=== PATIENT | female | born 2000 ===

== ENCOUNTER 2020-08-31 16:11 | Inpatient (IN) | payer OTHER ==
[2020-08-31] MEDS ORDERED: LIDOCAINE (2%) 20 MG/1 ML VIAL 20 ML MDV INFILTRATI ONE (17:46)
[2020-08-31] MEDS ORDERED: ePHEDrine SULFATE 50 MG/1 ML INJ IV PRN ×2 (17:46→21:56)
[2020-08-31] MEDS ORDERED: fentaNYL 100 MCG/2 ML INJ IV PRN (17:46)
[2020-08-31] MEDS ORDERED: ONDANSETRON 4 MG/2 ML INJ IV PRN (17:46)
[2020-08-31] MEDS ORDERED: MINERAL OIL 30 ML ORAL LIQD PO PRN (17:46)
[2020-08-31] MEDS ORDERED: TERBUTALINE 1 MG/1 ML INJ SUB-Q PRN (17:46)
[2020-08-31] MEDS ORDERED: ACETAMINOPHEN 325 MG TAB PO ONE (17:53)
--- NOTE | 2020-08-31 17:58 | History and Physical Report ---
History of Present Illness Date of examination: 08/31/20 Date of admission: 08/31/2020 Chief complaint: Vaginal spotting and contractions since this morning. History of present illness: 19 year old presents to L&D with complaint of vaginal spotting and contractions since this morning. Patient reports vaginal spotting was seen only with wiping and did not require use of a pad. Patient denies leaking of fluid. Patient reports active movement. Patient denies falls. Patient received care at [facility] and she brings records with her. LMP 12/02/2019. EDC 09/07/2020. significant for the following: low lying placenta (no ultrasound on chart to indicate whether this had resolved), BPD <10th percentile. labs are as follows: A+, antibody screen negative, rubella immune, hepatitis B surface antigen negative, HIV negative, RPR nonreactive, gonorrhea negative, chlamydia negative, AFP negative, 1 hour sugar test 85, GBS negative. Past History Past Medical History: other (overweight) Past Surgical History: no surgical history [employer]ATOR History: denies: chlamydia, gonorrhea, hepatitis B, hepatitis C, herpes, HIV, syphilis, trichomonas Family/Genetic History: diabetes, hypertension Social history: lives with family, full code. denies: smoking, alcohol abuse, prescription drug abuse, IV drug use - Obstetrical History Expected Date of Delivery: 09/07/20 Actual Gestation: 39 Week(s) 0 Day(s) : 1 Para: 0 Hx # Term Pregnancies: 0 Number of Pregnancies: 0 Spontaneous Abortions: 0 Induced : 0 Number of Living Children: 0 Medications and Allergies Allergies Allergy/AdvReac Type Severity Reaction Status Date / Time No Known Allergies Allergy Unverified 08/31/20 18:16 Active Meds: Active Medications Acetaminophen (Acetaminophen 325 Mg Tab) 650 mg PO ONCE ONE Stop: 08/31/20 17:54 Ephedrine Sulfate (Ephedrine Sulfate 50 Mg/1 Ml Inj) 10 mg IV Q2M PRN PRN Reason: Hypotension Fentanyl (Fentanyl 100 Mcg/2 Ml Inj) 100 mcg IV Q2H PRN PRN Reason: Pain,Severe (7-10) LABOR PAIN Lactated Ringer's (Lactated Ringers) 1,000 mls @ 125 mls/hr IV DIRECT EMMANUEL Oxytocin/Sodium Chloride (Pitocin/Ns 30 Unit/500ml) 30 units in 500 mls @ 40 mls/hr IV TITR EMMANUEL; Protocol Ampicillin Sodium (Ampicillin/Ns 2 Gm/100 Ml) 2 gm in 100 mls @ 100 mls/hr IV ONCE ONE; Protocol Stop: 08/31/20 18:45 Ampicillin Sodium (Ampicillin/Ns 1 Gm/50 Ml) 1 gm in 50 mls @ 100 mls/hr IV Q4H EMMANUEL; Protocol Lidocaine (Lidocaine (2%) 20 Mg/1 Ml Vial 20 Ml Mdv) 20 ml INFILTRATI ONCE ONE Stop: 08/31/20 17:47 Mineral Oil (Mineral Oil 30 Ml Oral Liqd) 30 ml PO QHS PRN PRN Reason: Constipation Ondansetron HCl (Ondansetron 4 Mg/2 Ml Inj) 4 mg IV Q8H PRN PRN Reason: Nausea And Vomiting Terbutaline Sulfate (Terbutaline 1 Mg/1 Ml Inj) 0.25 mg SUB-Q ONCE PRN PRN Reason: Hyperstimulation/Hypertonicity - Vital Signs Vital signs: Vital Signs Pulse BP 88 149/94 08/31/20 17:00 08/31/20 17:00 Temp Pulse Resp BP Pulse Ox 100.4 F H 90 18 136/105 99 08/31/20 17:03 08/31/20 17:48 08/31/20 17:03 08/31/20 17:45 08/31/20 17:48 - Physical Exam Abdomen: Positive: normal appearance, soft. Negative: distention, tenderness, guarding, rigidity Genitourinary (Female): Positive: normal external genitalia, normal perenium. Negative: perineal/vulvar lesions Vagina: Positive: other (small amount of pink vaginal spotting noted on exam glove) Uterus: Positive: enlarged. Negative: tender Anus/Rectum: Positive: normal perianal skin Extremities: Positive: normal. Negative: tenderness - Obstetrical FHR: category 1 Uterine Contraction Monitor Mode: External Cervical Dilatation: 3 Cervical Effacement Percentage: 70 station: -3 Uterine Contraction Pattern: Irregular Uterine Contraction Intensity: Mild Results All other labs normal. Assessment and Plan A: at 39 weeks gestation. Early labor. History of low lying placenta. GBS negative. Maternal fever upon presentation, temp. now normal. Elevated blood pressure; preeclampsia with severe features. P: Admit. EFM. Preeclamptic labs, urine culture, drug screen. Ultrasound for placenta location and integrity, EFW, RASHAUN, presentation. SCDs, Sommer catheter. Magnesium Sulfate IV for prevention of seizures. IV hydralazine for control of BPs. If no previa per US, plan augmentation of labor due to severe preeclampsia Consulted with Dr. Fajardo re: this patient and all of the above and he states he is in agreement with POC. Discussed POC with pt. via language line (patient speaks Dominican only).
[2020-08-31] MEDS ORDERED: MAGNESIUM SULFATE 4 GM/100 ML BAG IV ONE (17:59)
[2020-08-31] MEDS ORDERED: hydrALAZINE 20 MG/1 ML INJ IV PRN (18:00)
[2020-08-31] MEDS ORDERED: OXYTOCIN DRIP 30 UNITS/500 ML BAG IV SCH ×2 (18:00→23:45)
[2020-08-31] MEDS ORDERED: AMPICILLIN/NS 2 GM/100 ML 2 GM/100 ML BAG IV ONE (18:46)
[2020-08-31] MEDS: LACTATED RINGERS 1,000 ML IV SCH (18:47)
[2020-08-31] MEDS: MAGNESIUM SULFATE 40GM/1000ML 40 GM/1,000 ML BAG IV SCH (19:23)
[2020-08-31 19:33] LABS: Basophils # (Auto) 0.1 K/mm3 (0.0-0.1); Basophils % (Auto) 0.7 % (0.0-1.8); Eosinophils # (Auto) 0.1 K/mm3 (0.0-0.4); Eosinophils % (Auto) 0.6 % (0.0-4.3); Hemoglobin 13.4 gm/dl (10.1-14.3); Lymphocytes # (Auto) 2.4 K/mm3 (1.2-5.4); Lymphocytes % (Auto) 24.9 % (13.4-35.0); Mean Corpuscular HGB Conc 35 % (30-34); Mean Corpuscular Volume 98 fl (79-97); Monocytes # (Auto) 0.7 K/mm3 (0.0-0.8); Monocytes % (Auto) 7.4 % (0.0-7.3); Platelet Count 172 K/mm3 (140-440); Red Blood Count 3.87 M/mm3 (3.65-5.03); Red Cell Distribution Width 14.2 % (13.2-15.2)
[2020-08-31 19:47] LABS: Alanine Aminotransferase 14 units/L (7-56); Albumin 3.4 g/dL (3.9-5); Blood Urea Nitrogen 11 mg/dL (7-17); Hemolysis Index 66
[2020-08-31 19:49] LABS: BUN/Creatinine Ratio 22
[2020-08-31 19:55] LABS: Bilirubin,Urine NEG (Negative); Blood,Urine NEG (Negative); Color,Urine Yellow (Yellow); Mucus,Urine FEW /HPF; Urobilinogen,Urine < 2.0 mg/dL (<2.0)
[2020-08-31 20:16] LABS: Amphetamine Screen,Urine Negative; Benzodiazepines Screen,Urine Negative; Cannabinoid Screen,Urine Negative; Cocaine Screen,Urine Negative; Methadone Screen,Urine Negative; Opiate Screen,Urine Negative
[2020-08-31] MEDS ORDERED: NALOXONE 2 MG/2 ML INJ IV PRN (21:56)
--- NOTE | 2020-08-31 21:56 | Anesthesia Consultation ---
Anesthesia Consult and Med Hx Date of service: 08/31/20 - Airway Anesthetic Teeth Evaluation: Good ROM Head & Neck: Adequate Mental/Hyoid Distance: Adequate Mallampati Class: Class II Intubation Access Assessment: Good - Pulmonary Exam CTA: Yes - Cardiac Exam Cardiac Exam: RRR - Pre-Operative Health Status ASA Pre-Surgery Classification: ASA2 Proposed Anesthetic Plan: Epidural - Pulmonary Hx Smoking: No Hx Asthma: No Hx Respiratory Symptoms: No SOB: No COPD: No Home Oxygen Therapy: No Hx Pneumonia: No Hx Sleep Apnea: No - Cardiovascular System Hx Hypertension: Yes Hx Coronary Artery Disease: No Hx Heart Attack/AMI: No Hx Angina: No Hx Percutaneous Transluminal Coronary Angioplasty (PTCA): No Hx Cardia Arrhythmia: No Hx Pacemaker: No Hx Internal Defibrillator: No Hx Valvular Heart Disease: No Hx Heart Murmur: No Hx Peripheral Vascular Disease: No - Central Nervous System Hx Neuromuscular Disorder: No Hx Seizures: No CVA: No Hx Back Pain: No Hx Psychiatric Problems: No - Gastrointestinal Hx Ulcer: No Hx Gastroesophageal Reflux Disease: No - Endocrine Hx Renal Disease: No Hx End Stage Renal Disease: No Hx Cirrhosis: No Hx Liver Disease: No Hx Insulin Dependent Diabetes: No Hx Non-Insulin Dependent Diabetes: No Hx Thyroid Disease: No Hx Hypothyroidism: No Hx Hyperthyroidism: No - Hematic Hx Anemia: No Hx Sickle Cell Disease: No - Other Systems Hx Alcohol Use: No Hx Substance Use: No Hx Cancer: No Hx Obesity: No
--- NOTE | 2020-08-31 22:04 | Progress Note ---
Labor Epidural - Labor Epidural Start Time: 22:13 Stop Time: 22:24 Performed by:: HOLA RENEE Procedure: Patient is requesting a laboring epidural for laboring pain. Patient IDed, H&P reviewed, all questions and concerns were answered, and consent was signed. Timeout was performed at bedside. Patient in sitting position. Sterile prep and drape was performed. [3] ml of 1% lidocaine skin wheal at L[3]- L [4]. 18- gauge Tuohy epidural needle was advanced to loss of resistance with saline technique 6cm. Negative CSF negative blood. Epidural catheter advanced to [10] centimeters. [NEGATIVE] Aspiration [NEGATIVE] test dose. Sterile dressing applied. Patient tolerated procedure.
[2020-08-31] MEDS: fentaNYL-BUPIV 2 MCG/ML-0.125% 200 MCG/100 ML BAG EPIDURAL SCH (23:12)
--- NOTE | 2020-08-31 23:55 | Ultrasound Report ---
ULTRASOUND OBSTETRIC INDICATION / CLINICAL INFORMATION: Location/integrity of placenta, RASHAUN, EFW, presenta. Clinical Gestational Age (GA): TECHNIQUE: Transabdominal. COMPARISON: None available. FINDINGS: There is a single intrauterine . Biparietal Diameter = 8.5 cm = 34 weeks, 2 day(s). Head Circumference = 30.4 cm = 33 weeks, 5 day(s). Abdominal Circumference = 33.9 cm = 37 weeks, 6 day(s). Femur Length = 6.7 cm = 34 weeks, 2 day(s). Average Ultrasound Age (AUA) = 35 weeks, 0 day(s). Heart Rate: 143 beats per minute. Estimated Weight in grams (if calculated): 2859 Estimated Weight Growth Percentile (if calculated): Position: cephalic. Cervix: closed. Length in cm (if measured): Placenta: Posterior right lateral grade 2 and free of the os. Amniotic Fluid Volume: decreased Amniotic Fluid Index (RASHAUN) in cm (if calculated): 2.6. Maternal Adnexa: No significant abnormality. IMPRESSION: 1. Single, living intrauterine with estimated sonographic age of 35 weeks, 0 day(s). 2. Oligohydramnios Signer Name: Robert Steen MD Signed: 08/31/2020 11:51 PM Workstation Name: [id number]
[2020-09-01] MEDS: AMPICILLIN/NS 1 GM/50 ML 1 GM/50 ML BAG IV SCH ×2 (02:00→06:23)
[2020-09-01] MEDS: fentaNYL-BUPIV 2 MCG/ML-0.125% 200 MCG/100 ML BAG EPIDURAL SCH (07:31)
--- NOTE | 2020-09-01 07:42 | Event Note ---
Date: 09/01/20 Signed out to provider coming student union consultant.
--- NOTE | 2020-09-01 10:46 | Progress Note ---
Assessment and Plan A: IUP at 39 1/7 weeks Category I tracing Active Labor Preeclampsia GBS Negative P: AROM Continue Pitocin Augmentation Magnesium decreased to 2gm/hr Standard Magnesium precautions Subjective - Subjective Date of service: 09/01/20 Interval history: Of note, patient was discharged from care at [facility] for noncompliance with appointments after 22 weeks. Discharge letter was sent x 3. Patient reports: contractions (Reports still feeling pain with contractions under epidural anesthesia.), other (Denies headaches, visual changes, epigastric pain or swelling. Denies shortness of breath or altered mental status.), no new complaints Objective - Vital Signs Vital Signs: Vital Signs - 12hr 08/31/20 08/31/20 08/31/20 22:43 22:48 22:53 Temperature Pulse Rate 77 76 79 Respiratory Rate Blood Pressure 113/65 Blood Pressure [Left] O2 Sat by Pulse 98 96 97 Oximetry 08/31/20 08/31/20 08/31/20 22:58 23:03 23:08 Temperature Pulse Rate 95 H 77 73 Respiratory Rate Blood Pressure 121/72 Blood Pressure [Left] O2 Sat by Pulse 97 96 97 Oximetry 08/31/20 08/31/20 08/31/20 23:13 23:18 23:23 Temperature Pulse Rate 84 79 79 Respiratory Rate Blood Pressure Blood Pressure [Left] O2 Sat by Pulse 97 97 97 Oximetry 08/31/20 08/31/20 08/31/20 23:24 23:28 23:31 Temperature Pulse Rate 68 71 71 Respiratory Rate Blood Pressure 108/58 101/55 Blood Pressure [Left] O2 Sat by Pulse 97 Oximetry 08/31/20 08/31/20 08/31/20 23:33 23:34 23:38 Temperature Pulse Rate 79 75 77 Respiratory Rate Blood Pressure 103/59 Blood Pressure [Left] O2 Sat by Pulse 97 97 Oximetry 08/31/20 08/31/20 08/31/20 23:43 23:45 23:48 Temperature Pulse Rate 84 74 80 Respiratory Rate Blood Pressure 109/64 Blood Pressure [Left] O2 Sat by Pulse 97 97 Oximetry 08/31/20 08/31/20 08/31/20 23:53 23:54 23:58 Temperature Pulse Rate 77 76 78 Respiratory Rate Blood Pressure 97/58 Blood Pressure [Left] O2 Sat by Pulse 97 97 Oximetry 09/01/20 09/01/2009/01/21 00:03 00:05 00:06 Temperature Pulse Rate 81 74 74 Respiratory Rate Blood Pressure 101/57 109/60 Blood Pressure [Left] O2 Sat by Pulse 97 Oximetry 09/01/20 09/01/20 09/01/20 00:08 00:13 00:15 Temperature Pulse Rate 80 80 79 Respiratory Rate Blood Pressure 88/50 Blood Pressure [Left] O2 Sat by Pulse 97 97 Oximetry 09/01/20 09/01/20 09/01/20 00:18 00:23 00:26 Temperature Pulse Rate 84 97 H 101 H Respiratory Rate Blood Pressure 95/51 Blood Pressure [Left] O2 Sat by Pulse 97 97 Oximetry 09/01/20 09/01/20 09/01/20 00:28 00:33 00:35 Temperature Pulse Rate 98 H 92 H 88 Respiratory Rate Blood Pressure 109/63 Blood Pressure [Left] O2 Sat by Pulse 97 97 Oximetry 09/01/20 09/01/20 09/01/20 00:38 00:43 00:45 Temperature Pulse Rate 91 H 89 82 Respiratory Rate Blood Pressure 108/61 Blood Pressure [Left] O2 Sat by Pulse 97 97 Oximetry 09/01/20 09/01/20 09/01/20 00:48 00:53 00:55 Temperature Pulse Rate 93 H 95 H 86 Respiratory Rate Blood Pressure 111/65 Blood Pressure [Left] O2 Sat by Pulse 97 96 Oximetry 09/01/20 09/01/20 09/01/20 00:58 01:03 01:04 Temperature Pulse Rate 95 H 93 H 91 H Respiratory Rate Blood Pressure 103/55 Blood Pressure [Left] O2 Sat by Pulse 96 96 Oximetry 09/01/20 09/01/20 09/01/20 01:08 01:13 01:14 Temperature Pulse Rate 87 89 89 Respiratory Rate Blood Pressure 102/57 Blood Pressure [Left] O2 Sat by Pulse 97 96 Oximetry 09/01/20 09/01/20 09/01/20 01:18 01:23 01:25 Temperature Pulse Rate 87 88 87 Respiratory Rate Blood Pressure 115/61 Blood Pressure [Left] O2 Sat by Pulse 96 96 Oximetry 09/01/20 09/01/20 09/01/20 01:28 01:33 01:35 Temperature Pulse Rate 87 85 88 Respiratory Rate Blood Pressure 106/56 Blood Pressure [Left] O2 Sat by Pulse 97 96 Oximetry 09/01/20 09/01/20 09/01/20 01:38 01:43 01:44 Temperature Pulse Rate 92 H 92 H 89 Respiratory Rate Blood Pressure 102/57 Blood Pressure [Left] O2 Sat by Pulse 96 97 Oximetry 09/01/20 09/01/20 09/01/20 01:48 01:53 01:54 Temperature Pulse Rate 95 H 89 92 H Respiratory Rate Blood Pressure 103/58 Blood Pressure [Left] O2 Sat by Pulse 97 97 Oximetry 09/01/20 09/01/20 09/01/20 01:58 02:03 02:05 Temperature Pulse Rate 92 H 89 82 Respiratory Rate Blood Pressure 108/59 Blood Pressure [Left] O2 Sat by Pulse 97 97 Oximetry 09/01/20 09/01/20 09/01/20 02:08 02:13 02:15 Temperature Pulse Rate 83 87 74 Respiratory Rate Blood Pressure 103/61 Blood Pressure [Left] O2 Sat by Pulse 96 97 Oximetry 09/01/20 09/01/20 09/01/20 02:18 02:23 02:25 Temperature Pulse Rate 83 80 78 Respiratory Rate Blood Pressure 107/64 Blood Pressure [Left] O2 Sat by Pulse 97 96 Oximetry 09/01/20 09/01/20 09/01/20 02:28 02:33 02:35 Temperature Pulse Rate 79 85 77 Respiratory Rate Blood Pressure 107/59 Blood Pressure [Left] O2 Sat by Pulse 96 97 Oximetry 09/01/20 09/01/20 09/01/20 02:38 02:43 02:44 Temperature Pulse Rate 80 82 86 Respiratory Rate Blood Pressure 102/55 Blood Pressure [Left] O2 Sat by Pulse 96 97 Oximetry 09/01/20 09/01/20 09/01/20 02:48 02:53 02:54 Temperature Pulse Rate 78 80 87 Respiratory Rate Blood Pressure 106/55 Blood Pressure [Left] O2 Sat by Pulse 96 97 Oximetry 09/01/20 09/01/20 09/01/20 02:58 03:03 03:05 Temperature Pulse Rate 84 82 77 Respiratory Rate Blood Pressure 111/64 Blood Pressure [Left] O2 Sat by Pulse 96 97 Oximetry 09/01/20 09/01/20 09/01/20 03:08 03:13 03:15 Temperature Pulse Rate 83 81 78 Respiratory Rate Blood Pressure 109/61 Blood Pressure [Left] O2 Sat by Pulse 97 96 Oximetry 09/01/20 09/01/20 09/01/20 03:18 03:23 03:25 Temperature Pulse Rate 80 81 80 Respiratory Rate Blood Pressure 110/65 Blood Pressure [Left] O2 Sat by Pulse 97 97 Oximetry 09/01/20 09/01/20 09/01/20 03:28 03:33 03:35 Temperature Pulse Rate 85 83 77 Respiratory Rate Blood Pressure 111/68 Blood Pressure [Left] O2 Sat by Pulse 96 97 Oximetry 09/01/20 09/01/20 09/01/20 03:38 03:43 03:44 Temperature Pulse Rate 88 89 82 Respiratory Rate Blood Pressure 107/66 Blood Pressure [Left] O2 Sat by Pulse 97 98 Oximetry 09/01/20 09/01/20 09/01/20 03:48 03:53 03:54 Temperature Pulse Rate 80 82 81 Respiratory Rate Blood Pressure 108/67 Blood Pressure [Left] O2 Sat by Pulse 97 98 Oximetry 09/01/20 09/01/20 09/01/20 03:58 04:03 04:04 Temperature Pulse Rate 82 85 85 Respiratory Rate Blood Pressure 110/73 Blood Pressure [Left] O2 Sat by Pulse 97 98 Oximetry 09/01/20 09/01/20 09/01/20 04:08 04:13 04:14 Temperature Pulse Rate 83 85 82 Respiratory Rate Blood Pressure 114/64 Blood Pressure [Left] O2 Sat by Pulse 97 97 Oximetry 09/01/20 09/01/20 09/01/20 04:18 04:23 04:24 Temperature Pulse Rate 85 83 80 Respiratory Rate Blood Pressure 108/62 Blood Pressure [Left] O2 Sat by Pulse 98 98 Oximetry 09/01/20 09/01/20 09/01/20 04:28 04:33 04:34 Temperature Pulse Rate 82 82 82 Respiratory Rate Blood Pressure 112/66 Blood Pressure [Left] O2 Sat by Pulse 97 97 Oximetry 09/01/20 09/01/20 09/01/20 04:38 04:43 04:46 Temperature Pulse Rate 81 84 83 Respiratory Rate Blood Pressure 117/67 Blood Pressure [Left] O2 Sat by Pulse 97 98 Oximetry 09/01/20 09/01/20 09/01/20 04:48 04:53 04:56 Temperature Pulse Rate 84 86 83 Respiratory Rate Blood Pressure 125/70 Blood Pressure [Left] O2 Sat by Pulse 98 98 Oximetry 09/01/20 09/01/20 09/01/20 04:58 05:03 05:04 Temperature Pulse Rate 87 83 90 Respiratory Rate Blood Pressure 119/71 Blood Pressure [Left] O2 Sat by Pulse 98 97 Oximetry 09/01/20 09/01/20 09/01/20 05:08 05:13 05:14 Temperature Pulse Rate 105 H 92 H 100 H Respiratory Rate Blood Pressure 121/77 Blood Pressure [Left] O2 Sat by Pulse 98 97 Oximetry 09/01/20 09/01/20 09/01/20 05:18 05:23 05:24 Temperature Pulse Rate 92 H 93 H 87 Respiratory Rate Blood Pressure 118/77 Blood Pressure [Left] O2 Sat by Pulse 98 98 Oximetry 09/01/20 09/01/20 09/01/20 05:28 05:33 05:35 Temperature Pulse Rate 85 90 84 Respiratory Rate Blood Pressure 126/75 Blood Pressure [Left] O2 Sat by Pulse 98 97 Oximetry 09/01/20 09/01/20 09/01/20 05:38 05:43 05:44 Temperature Pulse Rate 85 89 83 Respiratory Rate Blood Pressure 122/71 Blood Pressure [Left] O2 Sat by Pulse 98 98 Oximetry 09/01/20 09/01/20 09/01/20 05:48 05:53 05:54 Temperature Pulse Rate 84 94 H 89 Respiratory Rate Blood Pressure 124/82 Blood Pressure [Left] O2 Sat by Pulse 97 98 Oximetry 09/01/20 09/01/20 09/01/20 05:58 06:03 06:04 Temperature Pulse Rate 86 87 85 Respiratory Rate Blood Pressure 116/73 Blood Pressure [Left] O2 Sat by Pulse 98 97 Oximetry 09/01/20 09/01/20 09/01/20 06:08 06:13 06:15 Temperature Pulse Rate 83 86 82 Respiratory Rate Blood Pressure 127/81 Blood Pressure [Left] O2 Sat by Pulse 97 97 Oximetry 09/01/20 09/01/20 09/01/20 06:18 06:23 06:24 Temperature Pulse Rate 89 87 91 H Respiratory Rate Blood Pressure 116/74 Blood Pressure [Left] O2 Sat by Pulse 97 97 Oximetry 09/01/20 09/01/20 09/01/20 06:28 06:33 06:34 Temperature Pulse Rate 89 89 86 Respiratory Rate Blood Pressure 118/75 Blood Pressure [Left] O2 Sat by Pulse 97 97 Oximetry 09/01/20 09/01/20 09/01/20 06:38 06:43 06:46 Temperature Pulse Rate 84 89 82 Respiratory Rate Blood Pressure 116/75 Blood Pressure [Left] O2 Sat by Pulse 97 98 Oximetry 09/01/20 09/01/20 09/01/20 06:48 06:53 06:55 Temperature Pulse Rate 89 87 81 Respiratory Rate Blood Pressure 113/73 Blood Pressure [Left] O2 Sat by Pulse 97 97 Oximetry 09/01/20 09/01/20 09/01/20 06:58 07:03 07:04 Temperature Pulse Rate 91 H 97 H 82 Respiratory Rate Blood Pressure 115/72 Blood Pressure [Left] O2 Sat by Pulse 97 98 Oximetry 09/01/20 09/01/20 09/01/20 07:08 07:13 07:15 Temperature 98.1 F Pulse Rate 92 H 85 91 H Respiratory Rate Blood Pressure 122/59 Blood Pressure [Left] O2 Sat by Pulse 98 97 Oximetry 09/01/20 09/01/20 09/01/20 07:18 07:23 07:26 Temperature Pulse Rate 88 84 85 Respiratory Rate Blood Pressure 129/63 Blood Pressure [Left] O2 Sat by Pulse 97 98 Oximetry 09/01/20 09/01/20 09/01/20 07:28 07:33 07:34 Temperature Pulse Rate 82 88 90 Respiratory Rate Blood Pressure 112/58 Blood Pressure [Left] O2 Sat by Pulse 97 97 Oximetry 09/01/20 09/01/20 09/01/20 07:38 07:43 07:44 Temperature Pulse Rate 88 84 95 H Respiratory Rate Blood Pressure 111/68 Blood Pressure [Left] O2 Sat by Pulse 98 97 Oximetry 09/01/20 09/01/20 09/01/20 07:48 07:53 07:55 Temperature Pulse Rate 79 81 81 Respiratory Rate Blood Pressure 117/75 Blood Pressure [Left] O2 Sat by Pulse 97 97 Oximetry 09/01/20 09/01/20 09/01/20 07:58 08:03 08:05 Temperature Pulse Rate 90 89 81 Respiratory Rate Blood Pressure 115/70 Blood Pressure [Left] O2 Sat by Pulse 96 96 Oximetry 09/01/20 09/01/20 09/01/20 08:08 08:13 08:14 Temperature Pulse Rate 86 83 88 Respiratory Rate Blood Pressure 117/67 Blood Pressure [Left] O2 Sat by Pulse 96 97 Oximetry 09/01/20 09/01/20 09/01/20 08:18 08:23 08:26 Temperature Pulse Rate 81 86 83 Respiratory Rate Blood Pressure 117/74 Blood Pressure [Left] O2 Sat by Pulse 97 97 Oximetry 09/01/20 09/01/20 09/01/20 08:28 08:33 08:34 Temperature Pulse Rate 88 79 88 Respiratory Rate Blood Pressure 116/68 Blood Pressure [Left] O2 Sat by Pulse 96 98 Oximetry 09/01/20 09/01/20 09/01/20 08:38 08:43 08:44 Temperature Pulse Rate 85 84 83 Respiratory Rate Blood Pressure 118/69 Blood Pressure [Left] O2 Sat by Pulse 97 96 Oximetry 09/01/20 09/01/20 09/01/20 08:48 08:53 08:54 Temperature Pulse Rate 83 91 H 91 H Respiratory Rate Blood Pressure 116/70 Blood Pressure [Left] O2 Sat by Pulse 97 97 Oximetry 09/01/20 09/01/20 09/01/20 08:58 09:03 09:05 Temperature Pulse Rate 90 88 96 H Respiratory Rate Blood Pressure 118/67 Blood Pressure [Left] O2 Sat by Pulse 97 98 Oximetry 09/01/20 09/01/20 09/01/20 09:08 09:13 09:15 Temperature Pulse Rate 91 H 95 H 89 Respiratory Rate Blood Pressure 111/66 Blood Pressure [Left] O2 Sat by Pulse 97 99 Oximetry 09/01/20 09/01/20 09/01/20 09:18 09:23 09:25 Temperature Pulse Rate 91 H 86 86 Respiratory Rate Blood Pressure 131/72 Blood Pressure [Left] O2 Sat by Pulse 98 98 Oximetry 09/01/20 09/01/20 09/01/20 09:28 09:33 09:34 Temperature Pulse Rate 92 H 90 91 H Respiratory Rate Blood Pressure 128/70 Blood Pressure [Left] O2 Sat by Pulse 98 98 Oximetry 09/01/20 09/01/20 09/01/20 09:38 09:43 09:45 Temperature Pulse Rate 89 99 H 94 H Respiratory Rate Blood Pressure 134/78 Blood Pressure [Left] O2 Sat by Pulse 98 98 Oximetry 09/01/20 09/01/20 09/01/20 09:48 09:53 09:54 Temperature Pulse Rate 92 H 89 87 Respiratory Rate Blood Pressure 128/81 Blood Pressure [Left] O2 Sat by Pulse 97 97 Oximetry 09/01/20 09/01/20 09/01/20 09:58 10:03 10:04 Temperature Pulse Rate 86 85 84 Respiratory Rate Blood Pressure 126/73 Blood Pressure [Left] O2 Sat by Pulse 97 97 Oximetry 09/01/20 09/01/20 09/01/20 10:08 10:13 10:15 Temperature Pulse Rate 97 H 90 85 Respiratory Rate Blood Pressure 125/83 Blood Pressure [Left] O2 Sat by Pulse 97 98 Oximetry 09/01/20 09/01/20 09/01/20 10:18 10:19 10:23 Temperature 97.1 F L Pulse Rate 91 H 91 H 100 H Respiratory 16 Rate Blood Pressure Blood Pressure 125/83 [Left] O2 Sat by Pulse 97 97 98 Oximetry 09/01/20 09/01/20 09/01/20 10:28 10:33 10:34 Temperature Pulse Rate 91 H 94 H 89 Respiratory Rate Blood Pressure 131/85 Blood Pressure [Left] O2 Sat by Pulse 99 97 94 Oximetry - Exam Breasts: normal Cardiovascular: Regular rate Lungs: Clear to auscultation, Normal air movement Abdomen: Present: normal appearance, soft Uterus: Present: normal, firm, fundal height above umbilicus FHR: category 1 Uterine Contraction Monitor Mode: External Cervical Dilatation: 7 (Moderate amount of clear fluid upon AROM at 1026.) Cervical Effacement Percentage: 70 station: -1 Uterine Contraction Pattern: Irregular Uterine Tone Measurement Phase: Resting Uterine Contraction Intensity: Moderate Extremities: normal - Labs Labs: Abnormal Labs 08/31/20 08/31/20 08/31/20 18:30 18:30 18:30 MCV 98 H MCH 35 H MCHC 35 H [place] % (Auto) 7.4 H Sodium 135 L Carbon Dioxide 19 L Creatinine 0.5 L Magnesium Alkaline Phosphatase 166 H Lactate Dehydrogenase 275 H Total Protein 5.9 L Albumin 3.4 L 09/01/20 09/01/20 00:27 07:53 MCV MCH MCHC [place] % (Auto) Sodium Carbon Dioxide Creatinine Magnesium 5.00 H 11.00 H Alkaline Phosphatase Lactate Dehydrogenase Total Protein Albumin Laboratory Results - last 24 hr 08/31/20 08/31/20 08/31/20 18:30 18:30 18:30 WBC 9.6 RBC 3.87 Hgb 13.4 Hct 38.0 MCV 98 H MCH 35 H MCHC 35 H RDW 14.2 Plt Count 172 Lymph % (Auto) 24.9 [place] % (Auto) 7.4 H Eos % (Auto) 0.6 Baso % (Auto) 0.7 Lymph # (Auto) 2.4 [place] # (Auto) 0.7 Eos # (Auto) 0.1 Baso # (Auto) 0.1 Seg Neutrophils % 66.4 Seg Neutrophils # 6.3 Sodium Potassium Chloride Carbon Dioxide Anion Gap BUN Creatinine Estimated GFR BUN/Creatinine Ratio Glucose Uric Acid Calcium Magnesium Total Bilirubin AST ALT Alkaline Phosphatase Lactate Dehydrogenase Total Protein Albumin Albumin/Globulin Ratio Urine Color Urine Turbidity Urine pH Ur Specific [place] Urine Protein Urine Glucose (UA) Urine Ketones Urine Blood Urine Nitrite Ur Reducing Substances Urine Bilirubin Urine Ictotest Urine Urobilinogen Ur Leukocyte Esterase Urine WBC (Auto) Urine RBC (Auto) U Epithel Cells (Auto) Urine Mucus Urine Yeast (Budding) Urine Opiates Screen Urine Methadone Screen Ur Barbiturates Screen Ur Phencyclidine Scrn Ur Amphetamines Screen U Benzodiazepines Scrn Urine Cocaine Screen U Marijuana (THC) Screen Drugs of Abuse Note Syphilis IgG Antibody Nonreactive Blood Type A POSITIVE Antibody Screen Negative 08/31/20 08/31/20 08/31/20 18:30 18:30 19:30 WBC RBC Hgb Hct MCV MCH MCHC RDW Plt Count Lymph % (Auto) [place] % (Auto) Eos % (Auto) Baso % (Auto) Lymph # (Auto) [place] # (Auto) Eos # (Auto) Baso # (Auto) Seg Neutrophils % Seg Neutrophils # Sodium 135 L Potassium 4.4 Chloride 102.1 Carbon Dioxide 19 L Anion Gap 18 BUN 11 Creatinine 0.5 L Estimated GFR > 60 BUN/Creatinine Ratio 22 Glucose 90 Uric Acid 6.0 Calcium 9.0 Magnesium Total Bilirubin 0.30 AST 25 ALT 14 Alkaline Phosphatase 166 H Lactate Dehydrogenase 275 H Total Protein 5.9 L Albumin 3.4 L Albumin/Globulin Ratio 1.4 Urine Color Yellow Urine Turbidity Slightly-cloudy Urine pH 7.0 Ur Specific [place] 1.015 Urine Protein 100 mg/dl Urine Glucose (UA) Neg Urine Ketones Neg Urine Blood Neg Urine Nitrite Neg Ur Reducing Substances Not Reportable Urine Bilirubin Neg Urine Ictotest Not Reportable Urine Urobilinogen < 2.0 Ur Leukocyte Esterase Neg Urine WBC (Auto) 4.0 Urine RBC (Auto) 6.0 U Epithel Cells (Auto) < 1.0 Urine Mucus Few Urine Yeast (Budding) Few Urine Opiates Screen Urine Methadone Screen Ur Barbiturates Screen Ur Phencyclidine Scrn Ur Amphetamines Screen U Benzodiazepines Scrn Urine Cocaine Screen U Marijuana (THC) Screen Drugs of Abuse Note Syphilis IgG Antibody Blood Type Antibody Screen 08/31/20 09/01/20 09/01/20 19:30 00:27 07:53 WBC RBC Hgb Hct MCV MCH MCHC RDW Plt Count Lymph % (Auto) [place] % (Auto) Eos % (Auto) Baso % (Auto) Lymph # (Auto) [place] # (Auto) Eos # (Auto) Baso # (Auto) Seg Neutrophils % Seg Neutrophils # Sodium Potassium Chloride Carbon Dioxide Anion Gap BUN Creatinine Estimated GFR BUN/Creatinine Ratio Glucose Uric Acid Calcium Magnesium 5.00 H 11.00 H Total Bilirubin AST ALT Alkaline Phosphatase Lactate Dehydrogenase Total Protein Albumin Albumin/Globulin Ratio Urine Color Urine Turbidity Urine pH Ur Specific [place] Urine Protein Urine Glucose (UA) Urine Ketones Urine Blood Urine Nitrite Ur Reducing Substances Urine Bilirubin Urine Ictotest Urine Urobilinogen Ur Leukocyte Esterase Urine WBC (Auto) Urine RBC (Auto) U Epithel Cells (Auto) Urine Mucus Urine Yeast (Budding) Urine Opiates Screen Negative Urine Methadone Screen Negative Ur Barbiturates Screen Negative Ur Phencyclidine Scrn Negative Ur Amphetamines Screen Negative U Benzodiazepines Scrn Negative Urine Cocaine Screen Negative U Marijuana (THC) Screen Negative Drugs of Abuse Note Disclamer Syphilis IgG Antibody Blood Type Antibody Screen
[2020-09-01] MEDS ORDERED: MINERAL OIL 30 ML ORAL LIQD ONE (14:51)
[2020-09-01] MEDS ORDERED: LIDOCAINE (2%) 20 MG/1 ML VIAL 20 ML MDV INFILTRATI ONE (15:59)
[2020-09-01] MEDS ORDERED: BUTORPHANOL 2 MG/1 ML INJ ONE (16:13)
[2020-09-01] MEDS ORDERED: LANOLIN/ZINC/DIMETHICONE (LANSINOH) 7 GM TP PRN (16:43)
[2020-09-01] MEDS ORDERED: diphenhydrAMINE 25 MG CAP PO PRN (16:43)
[2020-09-01] MEDS ORDERED: WITCH HAZEL/ GLYCERIN PAD TP PRN (16:43)
[2020-09-01] MEDS ORDERED: PROMETHAZINE 25 MG TAB PO PRN (16:43)
[2020-09-01] MEDS: MAGNESIUM SULFATE 40GM/1000ML 40 GM/1,000 ML BAG IV SCH ×2 (17:02→20:34)
--- NOTE | 2020-09-01 17:06 | Procedure Note ---
OB Delivery Note - Delivery Date of Delivery: 09/01/20 (1551) Surgeon: SAMANTHA UNDERWOOD Estimated blood loss: other (400cc) - Vaginal Delivery presentation: vertex Delivery position: OA Intrapartum events: preeclampsia Delivery induction: oxytocin Delivery augmentation: rupture of membranes, pitocin Delivery monitor: external FHT, external uterine Route of delivery: Delivery placenta: spontaneous Delivery cord: 3 umbilical vessels Episiotomy: none Delivery laceration: 1st degree (left labial), 2nd degree (vaginal side wall) Delivery repair: vicryl Anesthesia: local, epidural Delivery comments: of a live 6'15 male with Apgars of 6, 7, and 8 over 1st degree left labial and 2nd degree vaginal side wall lacerations under epidural anesthesia at 1551 on 09/01/2020. Cord double clamped and cut by ALIVIA Underwood. directly to warmer to awaiting [employer]. Spontaneous delivery of placenta complete and intact with [place] side presenting at 1556. Fundus is firm and midline, located 4 below the U. Lochia is scant. 1st degree laceration repaired with 2-0 vicryl on a SH under 2% local Lidocaine. 2nd degree laceration repaired with 2-[address]-1. Cord blood gases x 2 collected. Placenta to be discarded. To continue Magnesium Sulfate 2gm/hr until 24 hours . - A at 1 minute: 6 at 5 minutes: 7 (8) Gender: Male (6'15)
[2020-09-01] MEDS: IBUPROFEN 600 MG TAB PO SCH ×2 (17:07→22:43)
[2020-09-01] MEDS: LACTATED RINGERS 1,000 ML IV SCH (17:07)
[2020-09-01] MEDS ORDERED: CARBOPROST TROMETHAMINE 250 MCG/1 ML INJ IM ONE (22:30)
[2020-09-01] MEDS ORDERED: miSOPROStol 200 MCG TAB ONE (22:35)
[2020-09-01 23:46] LABS: Hematocrit 27.6 % (30.3-42.9); Hemoglobin 9.4 gm/dl (10.1-14.3)
[2020-09-02] MEDS ORDERED: miSOPROStol 200 MCG TAB PR ONE (00:14)
--- NOTE | 2020-09-02 00:23 | Progress Note ---
Assessment and Plan A: Delayed Hemorrhage Decreased Urinary Output (300ccs over 6 hours) P: Hemobate 250mcg IM x 1 dose Uterine Exploration with Manual Extraction of Multiple Blood Clots (EBL: 400) Vigorous External Uterine Massage Cytotec 1000mcg per Rectum Bolus one liter of fluid D/C Magnesium Sulfate Closely Monitor Mare Pad/Bleeding Stat CBC; Repeat CBC @ 0400 Dr. Taylor Consulted Subjective - Subjective Date of service: 09/02/20 (Call by RN due to large amount of uterine bleeding) Interval history: Of note, patient was discharged from care at [facility] for noncompliance with appointments after 22 weeks. Discharge letter was sent x 3. Patient reports: appetite normal, flatus, bowel movement (large, soft BM with manual clot removal), other (decreased urinary output. Denies dizziness, HAs, visual changes, and fatigue) Albers: in NICU Objective - Vital Signs Latest vital signs: Vital Signs Temp Pulse Resp BP BP Pulse Ox 09/02/20 00:16 82 98 09/02/20 00:11 83 97 09/02/20 00:06 85 97 09/02/20 00:01 94 H 98 09/01/20 23:57 81 128/82 09/01/20 23:56 94 H 98 09/01/20 23:51 94 H 99 09/01/20 23:46 81 99 09/01/20 23:41 85 100 09/01/20 23:36 79 99 09/01/20 23:31 91 H 99 09/01/20 23:27 91 H 114/69 09/01/20 23:26 84 99 09/01/20 23:21 87 99 09/01/20 23:16 91 H 99 09/01/20 23:11 95 H 99 09/01/20 23:06 105 H 100 09/01/20 23:01 89 100 09/01/20 23:00 95 H 135/82 09/01/20 22:56 26 L 82 L 09/01/20 22:52 98.0 F 09/01/20 22:51 103 H 100 09/01/20 22:46 91 H 99 09/01/20 22:41 89 128/74 99 09/01/20 22:36 84 100 09/01/20 22:31 85 100 09/01/20 22:27 93 H 131/80 03/22/21 22:26 96 H 99 03/22/21 22:21 98.8 F 95 H 98 03/22/21 22:16 86 99 03/22/21 22:11 104 H 99 03/22/21 22:06 105 H 98 03/22/21 22:02 106 H 108/59 03/22/21 22:01 103 H 99 03/22/21 21:57 110 H 112/63 0322/21 21:56 105 H 99 0322/21 21:51 116 H 99 0322/21 21:46 110 H 98 0322/21 21:41 107 H 98 0322/21 21:36 111 H 98 0322/21 21:31 97 H 98 0322/21 21:28 129 H 138/62 0322/21 21:26 120 H 100 0322/21 21:21 110 H 98 0322/21 21:16 115 H 99 0322/21 21:11 107 H 99 0322/21 21:06 116 H 99 0322/21 21:01 103 H 98 0322/21 20:57 105 H 112/66 0322/21 20:56 100 H 99 0322/21 20:51 106 H 99 0322/21 20:46 104 H 98 0322/21 20:41 107 H 98 0322/21 20:36 101 H 98 0322/21 20:31 103 H 97 0322/21 20:27 94 H 100/60 0322/21 20:26 105 H 97 0322/21 20:21 106 H 97 0322/21 20:16 99 H 96 0322/21 20:11 99 H 97 0322/21 20:06 121 H 98 03/22/21 20:01 108 H 97 0322/21 19:57 105 H 108/61 0322/21 19:56 98 H 98 03/22/21 19:54 98.5 F 20 97 03/22/21 19:51 108 H 97 03/22/21 19:46 106 H 99 03/22/21 19:41 93 H 99 0322/21 19:36 103 H 98 0322/21 19:31 96 H 98 03/22/21 19:27 99 H 103/57 03/22/21 19:26 109 H 97 09/01/20 19:21 102 H 97 09/01/20 19:16 110 H 97 09/01/20 19:11 88 98 09/01/20 19:06 103 H 97 09/01/20 19:01 107 H 97 09/01/20 18:56 94 H 97 09/01/20 18:51 90 98 09/01/20 18:48 96 H 110/61 09/01/20 18:46 98 H 99 09/01/20 18:41 95 H 98 09/01/20 18:36 93 H 98 09/01/20 18:33 100 H 116/66 09/01/20 18:31 106 H 98 09/01/20 18:26 115 H 99 09/01/20 18:21 107 H 98 09/01/20 18:18 103 H 122/70 09/01/20 18:16 93 H 97 09/01/20 18:11 89 98 09/01/20 18:06 99 H 99 09/01/20 18:03 98.3 F 99 H 18 125/75 125/75 97 09/01/20 18:01 100 H 98 09/01/20 17:56 106 H 96 09/01/20 17:51 107 H 98 09/01/20 17:49 101 H 147/63 09/01/20 17:46 96 H 98 09/01/20 17:41 101 H 97 09/01/20 17:36 89 97 09/01/20 17:33 88 118/69 09/01/20 17:31 87 96 09/01/20 17:26 85 96 09/01/20 17:21 89 97 21 17:18 90 119/69 09/01/20 17:16 88 96 09/01/20 17:11 90 96 09/01/20 17:07 18 09/01/20 17:06 91 H 96 09/01/20 17:04 83 120/67 09/01/20 17:01 90 97 09/01/20 16:56 93 H 95 09/01/20 16:51 103 H 97 09/01/20 16:49 122 H 92 09/01/20 16:45 94 H 98 09/01/20 16:40 102 H 97 09/01/20 16:35 112 H 96 09/01/20 16:34 103 H 144/93 09/01/20 16:30 107 H 96 09/01/20 16:29 100 H 94 09/01/20 16:25 106 H 95 09/01/20 16:20 105 H 96 09/01/20 16:19 103 H 94 09/01/20 16:18 99 H 127/62 09/01/20 16:15 51 L 98 09/01/20 16:10 82 96 09/01/20 16:05 83 86 09/01/20 16:03 100 H 133/61 09/01/20 16:00 107 H 18 99 09/01/20 15:54 121 H 98 09/01/20 15:49 137 H 145/74 96 09/01/20 15:44 110 H 95 09/01/20 15:39 115 H 97 09/01/20 15:34 120 H 143/65 100 09/01/20 15:29 77 97 09/01/20 15:26 125 H 142/82 09/01/20 15:24 36 L 94 09/01/20 15:19 148 H 162/107 97 09/01/20 15:14 115 H 99 09/01/20 15:08 69 97 09/01/20 15:07 118 H 135/75 09/01/20 15:05 123 H 210/106 09/01/20 15:03 128 H 98 09/01/20 14:58 105 H 99 09/01/20 14:53 104 H 97 09/01/20 14:48 98 H 141/95 98 09/01/20 14:43 96 H 98 09/01/20 14:38 94 H 97 09/01/20 14:34 88 137/90 09/01/20 14:33 93 H 98 09/01/20 14:28 93 H 98 09/01/20 14:23 98.1 F 89 20 146/87 146/87 96 09/01/20 14:19 88 149/101 09/01/20 14:18 90 98 09/01/20 14:13 113 H 98 09/01/20 14:08 93 H 98 09/01/20 14:04 83 120/80 09/01/20 14:03 87 97 09/01/20 13:58 99 H 97 09/01/20 13:53 112 H 98 09/01/20 13:49 91 H 136/87 09/01/20 13:48 97 H 98 09/01/20 13:43 101 H 96 09/01/20 13:38 91 H 97 09/01/20 13:35 101 H 116/95 09/01/20 13:33 99 H 95 09/01/20 13:29 100 H 94 09/01/20 13:28 98 H 97 09/01/20 13:23 99 H 98 09/01/20 13:19 98 H 130/95 09/01/20 13:18 95 H 96 09/01/20 13:13 92 H 97 09/01/20 13:10 92 H 94 09/01/20 13:08 92 H 97 09/01/20 13:05 96 H 132/85 09/01/20 13:03 93 H 95 09/01/20 12:58 102 H 95 09/01/20 12:53 95 H 97 09/01/20 12:49 94 H 134/83 09/01/20 12:48 94 H 97 09/01/20 12:43 91 H 97 09/01/20 12:38 92 H 98 09/01/20 12:33 91 H 131/74 98 09/01/20 12:28 93 H 98 09/01/20 12:23 112 H 97 09/01/20 12:19 98 H 149/85 09/01/20 12:18 93 H 97 09/01/20 12:13 90 96 09/01/20 12:08 91 H 97 09/01/20 12:05 93 H 133/78 09/01/20 12:03 93 H 97 09/01/20 11:58 92 H 97 09/01/20 11:53 91 H 97 09/01/20 11:49 92 H 131/86 09/01/20 11:48 91 H 98 09/01/20 11:43 91 H 97 09/01/20 11:38 94 H 97 09/01/20 11:34 90 129/82 09/01/20 11:33 89 97 09/01/20 11:28 91 H 100 09/01/20 11:23 87 98 09/01/20 11:18 86 147/88 98 09/01/20 11:13 89 97 03/22/21 11:08 87 97 22/21 11:04 85 135/84 09/01/21 11:03 86 97 09/01/21 10:58 86 97 09/01/21 10:53 84 98 09/01/21 10:49 85 135/69 22/21 10:48 88 96 22/21 10:43 84 97 09/01/21 10:38 89 97 09/01/21 10:34 89 131/85 94 09/01/21 10:33 94 H 97 09/01/21 10:28 91 H 99 09/01/21 10:23 100 H 98 09/01/ 10:19 97.1 F L 91 H 16 125/83 97 09/01/ 10:18 91 H 97 09/01/ 10:15 85 125/83 09/01/ 10:13 90 98 09/01/ 10:08 97 H 97 09/01/20 10:04 84 126/73 09/01/ 10:03 85 97 09/01/ 09:58 86 97 09/01/ 09:54 87 128/81 09/01/ 09:53 89 97 09/01/21 09:48 92 H 97 09/01/ 09:45 94 H 134/78 09/01/ 09:43 99 H 98 09/01/ 09:38 89 98 09/01/ 09:34 91 H 128/70 09/01/21 09:33 90 98 09/01/21 09:28 92 H 98 09/01/21 09:25 86 131/72 09/01/21 09:23 86 98 09/01/21 09:18 91 H 98 09/01/21 09:15 89 111/66 0322/21 09:13 95 H 99 22/21 09:08 91 H 97 09/01/21 09:05 96 H 118/67 03/21 09:03 88 98 09/01/21 08:58 90 97 22/21 08:54 91 H 116/70 0322/21 08:53 91 H 97 22/21 08:48 83 97 22/21 08:44 83 118/69 22/21 08:43 84 96 03/22/21 08:38 85 97 0322/21 08:34 88 116/68 22/21 08:33 79 98 0322/21 08:28 88 96 09/01/21 08:26 83 117/74 09/01/21 08:23 86 97 22/21 08:18 81 97 22/21 08:14 88 117/67 22/21 08:13 83 97 09/01/21 08:08 86 96 09/01/21 08:05 81 115/70 0322/21 08:03 89 96 22/21 07:58 90 96 09/01/21 07:55 81 117/75 22/21 07:53 81 97 09/01/21 07:48 79 97 09/01/21 07:44 95 H 111/68 09/01/21 07:43 84 97 09/01/21 07:38 88 98 09/01/21 07:34 90 112/58 09/01/ 07:33 88 97 09/01/21 07:28 82 97 09/01/21 07:26 85 129/63 09/01/21 07:23 84 98 09/01/21 07:18 88 97 09/01/21 07:15 91 H 122/59 09/01/21 07:13 98.1 F 85 97 09/01/ 07:08 92 H 98 09/01/21 07:04 82 115/72 09/01/21 07:03 97 H 98 09/01/21 06:58 91 H 97 09/01/21 06:55 81 113/73 09/01/21 06:53 87 97 22/21 06:48 89 97 0322/21 06:46 82 116/75 0322/21 06:43 89 98 0322/21 06:38 84 97 22/21 06:34 86 118/75 0322/21 06:33 89 97 22/21 06:28 89 97 0322/21 06:24 91 H 116/74 22/21 06:23 87 97 0322/21 06:18 89 97 0322/21 06:15 82 127/81 0322/21 06:13 86 97 22/21 06:08 83 97 09/01/21 06:04 85 116/73 03/21 06:03 87 97 09/01/ 05:58 86 98 03/ 05:54 89 124/82 09/01/21 05:53 94 H 98 09/01/21 05:48 84 97 21 05:44 83 122/71 09/01/21 05:43 89 98 09/01/20 05:38 85 98 09/01/20 05:35 84 126/75 09/01/20 05:33 90 97 09/01/20 05:28 85 98 09/01/20 05:24 87 118/77 09/01/21 05:23 93 H 98 09/01/20 05:18 92 H 98 09/01/20 05:14 100 H 121/77 09/01/20 05:13 92 H 97 09/01/20 05:08 105 H 98 09/01/20 05:04 90 119/71 09/01/20 05:03 83 97 09/01/20 04:58 87 98 09/01/20 04:56 83 125/70 09/01/21 04:53 86 98 09/01/20 04:48 84 98 09/01/21 04:46 83 117/67 09/01/21 04:43 84 98 09/01/ 04:38 81 97 09/01/ 04:34 82 112/66 09/01/21 04:33 82 97 09/01/ 04:28 82 97 09/01/ 04:24 80 108/62 09/01/21 04:23 83 98 09/01/21 04:18 85 98 09/01/21 04:14 82 114/64 09/01/21 04:13 85 97 09/01/21 04:08 83 97 09/01/21 04:04 85 110/73 09/01/21 04:03 85 98 09/01/21 03:58 82 97 09/01/21 03:54 81 108/67 03/21 03:53 82 98 09/01/21 03:48 80 97 09/01/21 03:44 82 107/66 0322/21 03:43 89 98 09/01/21 03:38 88 97 21 03:35 77 111/68 03/22/21 03:33 83 97 09/01/20 03:28 85 96 09/01/20 03:25 80 110/65 09/01/20 03:23 81 97 09/01/20 03:18 80 97 09/01/20 03:15 78 109/61 09/01/20 03:13 81 96 09/01/20 03:08 83 97 09/01/20 03:05 77 111/64 09/01/20 03:03 82 97 09/01/20 02:58 84 96 09/01/20 02:54 87 106/55 09/01/20 02:53 80 97 09/01/20 02:48 78 96 09/01/20 02:44 86 102/55 09/01/20 02:43 82 97 09/01/20 02:38 80 96 09/01/20 02:35 77 107/59 09/01/20 02:33 85 97 09/01/20 02:28 79 96 09/01/20 02:25 78 107/64 09/01/20 02:23 80 96 09/01/20 02:18 83 97 09/01/20 02:15 74 103/61 09/01/20 02:13 87 97 09/01/20 02:08 83 96 09/01/20 02:05 82 108/59 09/01/20 02:03 89 97 09/01/20 01:58 92 H 97 09/01/20 01:54 92 H 103/58 09/01/20 01:53 89 97 09/01/20 01:48 95 H 97 09/01/20 01:44 89 102/57 09/01/20 01:43 92 H 97 09/01/20 01:38 92 H 96 09/01/20 01:35 88 106/56 09/01/20 01:33 85 96 09/01/20 01:28 87 97 09/01/20 01:25 87 115/61 09/01/20 01:23 88 96 09/01/20 01:18 87 96 09/01/20 01:14 89 102/57 09/01/20 01:13 89 96 09/01/20 01:08 87 97 09/01/20 01:04 91 H 103/55 09/01/20 01:03 93 H 96 09/01/20 00:58 95 H 96 03/22/21 00:55 86 111/65 09/01/20 00:53 95 H 96 09/01/20 00:48 93 H 97 09/01/20 00:45 82 108/61 09/01/20 00:43 89 97 09/01/20 00:38 91 H 97 09/01/20 00:35 88 109/63 09/01/20 00:33 92 H 97 09/01/20 00:28 98 H 97 09/01/20 00:26 101 H 95/51 09/01/20 00:23 97 H 97 09/01/20 00:18 84 97 Intake and Output 09/01/20 09/01/20 09/02/20 14:59 22:59 06:59 Intake Total 864.933 176.667 Output Total 625 450 Balance 239.933 -273.333 Intake: IV 864.933 176.667 MAGNESIUM SULFATE 40GM/ 780.833 176.667 1000ML 40 gm In 1,000 ml @ 2 GM/HR 50 mls/hr IV DIRECT EMMANUEL Rx#:[id number] PITOCin/NS 30 UNIT/500ML 84.100 30 units In 500 ml @ 40 mls/hr IV TITR EMMANUEL Rx#: [id number] Output: Urine 625 450 Indwelling 100 Indwelling Catheter 625 350 Other: Total, Output Amount 300 150 Estimated Blood Loss 400 - Exam Breasts: Present: normal Cardiovascular: Present: Regular rate Lungs: Present: Normal air movement Abdomen: Present: normal appearance, soft Uterus: Present: normal, firm, fundal height below umbilicus Extremities: Present: normal - Labs Labs: Abnormal lab results 09/01/20 09/01/20 09/01/20 Range/Units 00:27 07:53 13:12 Hgb (10.1-14.3) gm/dl Hct (30.3-42.9) % ABG pH (7.320-7.450) POC ABG pCO2 (32.0-48.0) mmHg POC ABG pO2 (83-108) mmHg ABG Oxyhemoglobin (94-98) ABG Sodium (136.0-145.0) mmol/L ABG Glucose (65-95) mg/dL Carboxyhemoglobin (0.5-1.5) Magnesium 5.00 H 11.00 H 4.40 H (1.7-2.3) mg/dL Arterial Blood Glucose (65-95) mg/dL Arterial Blood Ionized Calcium (4.6-5.3) mg/dL 09/01/20 09/01/20 09/01/20 Range/Units 16:45 18:50 22:59 Hgb 9.4 L D (10.1-14.3) gm/dl Hct 27.6 L D (30.3-42.9) % ABG pH 6.964 L (7.320-7.450) POC ABG pCO2 69.8 H (32.0-48.0) mmHg POC ABG pO2 13.5 L (83-108) mmHg ABG Oxyhemoglobin 11.6 L (94-98) ABG Sodium 132.3 L (136.0-145.0) mmol/L ABG Glucose 110 H (65-95) mg/dL Carboxyhemoglobin 0.4 L (0.5-1.5) Magnesium 5.30 H (1.7-2.3) mg/dL Arterial Blood Glucose 110 H (65-95) mg/dL Arterial Blood Ionized Calcium 5.5 H (4.6-5.3) mg/dL
[2020-09-02] MEDS: LACTATED RINGERS 1,000 ML IV SCH ×2 (00:58→04:18)
[2020-09-02] MEDS: IBUPROFEN 600 MG TAB PO SCH ×3 (05:16→23:46)
[2020-09-02 06:15] LABS: Basophils % (Auto) 0.2 % (0.0-1.8); Eosinophils # (Auto) 0.1 K/mm3 (0.0-0.4); Eosinophils % (Auto) 0.5 % (0.0-4.3); Hemoglobin 7.6 gm/dl (10.1-14.3); Lymphocytes # (Auto) 2.3 K/mm3 (1.2-5.4); Lymphocytes % (Auto) 16.5 % (13.4-35.0); Mean Corpuscular HGB Conc 34 % (30-34); Mean Corpuscular Volume 99 fl (79-97); Monocytes # (Auto) 1.2 K/mm3 (0.0-0.8); Monocytes % (Auto) 8.4 % (0.0-7.3); Platelet Count 122 K/mm3 (140-440); Red Blood Count 2.22 M/mm3 (3.65-5.03); Red Cell Distribution Width 14.2 % (13.2-15.2)
--- NOTE | 2020-09-02 07:13 | Event Note ---
Date: 09/02/20 RN called for Hgb report 2/2 delayed hemorrhage 400 cc EBL (800 EBL including delivery, s/p cytotec 1000mg, hemabate x 1). Starting Hgb 13.5 -> POD0 9.4 -> POD1 7.6. Patient without tachycardia, otherwise vitals wnl, currently feeling okay. Plan to keep patient on L&D 24H . Of note, WBC elevated to 13, but patient without fever/tachycardia, otherwise no evidence of current infection. Repeat CBC @ 1200 today. Continue to monitor closely.
[2020-09-02] MEDS ORDERED: SODIUM CHLORIDE 0.9% 500 ML 500 ML IV NR (08:03)
--- NOTE | 2020-09-02 09:42 | Post Anesthesia Evaluation ---
- Post Anesthesia Evaluation Patient Participated: Yes Airway Patent: Yes Stable Respiratory Function: Yes Nausea/Vomiting: No Temp > 96.8F: Yes Pain Manageable: Yes Adequeate Hydration: Yes Anesthesia Complications: No Block Receding Appropriately: Yes Patient on Ventilator: No Other Comments: Hct drop, pt receiving blood
--- NOTE | 2020-09-02 09:47 | Progress Note ---
Assessment and Plan A: S/P with delayed PPH p: Continue routine pp care Infuse 2u PRBCs pe Fe prescribed May tranfer to PP unit Apply int pneumatic compression stockings Encourage ambulation with assist after transfusion D/C home in 24-48 hrs if approved by MD - Patient Problems (1) (normal spontaneous vaginal delivery) Current Visit: Yes Status: Acute (2) PPH ( hemorrhage) Current Visit: Yes Status: Acute Subjective - Subjective Date of service: 09/02/20 Principal diagnosis: with PPH Patient reports: appetite normal, voiding normally, pain well controlled, other (c/o feeling weak and tired. She denies sob or dizziness.) [place]: doing well, bottle feeding Objective - Vital Signs Latest vital signs: Vital Signs Temp Pulse Resp BP BP Pulse Ox 09/02/20 09:42 78 100 09/02/20 09:37 82 99 09/02/20 09:35 98.6 F 82 20 127/84 98 09/02/20 09:32 98.5 F 82 20 125/79 100 09/02/20 09:30 78 125/79 09/02/20 09:27 81 100 09/02/20 09:25 98.3 F 81 16 114/76 100 09/02/20 09:22 86 100 09/02/20 09:21 85 126/80 09/02/20 09:20 98.1 F 90 12 126/80 100 09/02/20 09:17 85 100 09/02/20 09:12 82 100 09/02/20 09:07 80 100 09/02/20 09:02 101 H 100 09/02/20 08:57 88 100 09/02/20 08:52 79 100 09/02/20 08:47 81 100 09/02/20 08:42 81 100 09/02/20 08:37 82 100 09/02/20 08:32 86 99 09/02/20 08:27 86 99 09/02/20 08:22 84 100 09/02/20 08:17 86 100 09/02/20 08:12 101 H 99 09/02/20 08:07 87 99 09/02/20 08:02 87 100 09/02/20 07:57 82 112/61 100 09/02/20 07:52 83 100 09/02/20 07:47 91 H 99 09/02/20 07:42 84 100 09/02/20 07:39 98.5 F 87 16 114/58 114/58 09/02/20 07:37 82 100 09/02/20 07:32 84 100 09/02/20 07:27 81 118/62 99 09/02/20 07:22 81 99 09/02/20 07:17 83 100 09/02/20 07:12 84 98 09/02/20 07:07 93 H 99 09/02/20 07:02 80 100 09/02/20 06:57 80 119/74 100 09/02/20 06:52 83 99 09/02/20 06:47 93 H 100 09/02/20 06:42 82 100 09/02/20 06:37 84 100 09/02/20 06:32 85 100 09/02/20 06:27 82 112/69 100 09/02/20 06:22 84 100 09/02/20 06:17 85 100 09/02/20 06:12 84 100 09/02/20 06:07 81 100 09/02/20 06:02 83 100 09/02/20 05:57 88 144/62 99 09/02/20 05:52 96 H 99 09/02/20 05:47 94 H 99 09/02/20 05:41 83 100 09/02/20 05:36 83 99 09/02/20 05:31 86 100 09/02/20 05:27 83 111/67 09/02/20 05:26 84 100 09/02/20 05:21 82 100 09/02/20 05:16 87 100 09/02/20 05:11 84 100 09/02/20 05:06 92 H 100 09/02/20 05:01 83 99 09/02/20 04:57 85 118/71 09/02/20 04:56 84 100 09/02/20 04:51 84 100 09/02/20 04:46 81 100 09/02/20 04:41 80 100 09/02/20 04:36 106 H 99 09/02/20 04:31 80 100 09/02/20 04:27 77 117/71 09/02/20 04:26 84 100 09/02/20 04:21 81 99 09/02/20 04:16 87 99 09/02/20 04:15 98 H 88 09/02/20 04:11 89 99 03 04:06 81 99 03 04:01 87 100 09/02/20 03:57 82 115/66 03 03:56 84 100 09/02/20 03:51 88 100 09/02/20 03:46 87 99 09/02/20 03:41 84 99 09/02/20 03:36 84 99 09/02/20 03:31 82 99 09/02/20 03:27 84 116/76 09/02/20 03:26 82 100 09/02/20 03:21 85 100 09/02/20 03:16 84 100 09/02/20 03:11 86 99 09/02/20 03:06 86 99 09/02/20 03:01 98.1 F 90 99 09/02/20 02:57 85 123/75 09/02/20 02:56 85 99 09/02/20 02:51 81 98 09/02/20 02:46 94 H 100 09/02/20 02:41 86 99 09/02/20 02:36 87 99 09/02/20 02:31 99 H 100 09/02/20 02:27 87 120/75 09/02/20 02:26 92 H 99 09/02/20 02:21 84 99 09/02/20 02:16 94 H 100 09/02/20 02:11 84 100 09/02/20 02:06 88 99 09/02/20 02:01 82 99 09/02/20 01:57 90 120/90 09/02/20 01:56 81 100 09/02/20 01:51 86 99 09/02/20 01:46 84 99 09/02/20 01:41 82 99 09/02/20 01:36 82 99 09/02/20 01:31 82 99 03 01:27 81 125/85 09/02/20 01:26 81 99 03 01:21 81 100 09/02/20 01:16 76 100 09/02/20 01:11 78 100 09/02/20 01:06 84 100 09/02/20 01:01 80 100 03 00:57 90 129/82 09/02/20 00:56 83 98 09/02/20 00:51 106 H 98 09/02/20 00:48 94 H 93 09/02/20 00:46 79 99 09/02/20 00:41 88 100 09/02/20 00:36 79 98 09/02/20 00:31 80 97 09/02/20 00:27 78 120/84 09/02/20 00:26 85 98 09/02/20 00:21 83 99 09/02/20 00:16 82 98 09/02/20 00:11 83 97 09/02/20 00:06 85 97 09/02/20 00:01 94 H 98 09/01/20 23:57 81 128/82 09/01/20 23:56 94 H 98 09/01/20 23:51 94 H 99 09/01/20 23:46 81 99 09/01/20 23:41 85 100 09/01/20 23:36 79 99 09/01/20 23:31 91 H 99 09/01/20 23:27 91 H 114/69 09/01/20 23:26 84 99 09/01/20 23:21 87 99 09/01/20 23:16 91 H 99 22 23:11 95 H 99 032221 23:06 105 H 100 22 23:01 89 100 2221 23:00 95 H 135/82 21 22:56 26 L 82 L 09/01/20 22:52 98.0 F 09/01/20 22:51 103 H 100 09/01/20 22:46 91 H 99 21 22:41 89 128/74 99 2221 22:36 84 100 2221 22:31 85 100 2221 22:27 93 H 131/80 032221 22:26 96 H 99 032221 22:21 98.8 F 95 H 98 2221 22:16 86 99 0322/21 22:11 104 H 99 032221 22:06 105 H 98 032221 22:02 106 H 108/59 0322/21 22:01 103 H 99 0322/21 21:57 110 H 112/63 032221 21:56 105 H 99 0322/21 21:51 116 H 99 0322/21 21:46 110 H 98 0322/21 21:41 107 H 98 03/22/21 21:36 111 H 98 0322/21 21:31 97 H 98 0322/21 21:28 129 H 138/62 0322/21 21:26 120 H 100 03/22/21 21:21 110 H 98 0322/21 21:16 115 H 99 0322/21 21:11 107 H 99 0322/21 21:06 116 H 99 0322/21 21:01 103 H 98 0322/21 20:57 105 H 112/66 0322/21 20:56 100 H 99 0322/21 20:51 106 H 99 0322/21 20:46 104 H 98 0322/21 20:41 107 H 98 0322/21 20:36 101 H 98 0322/21 20:31 103 H 97 0322/21 20:27 94 H 100/60 0322/21 20:26 105 H 97 0322/21 20:21 106 H 97 0322/21 20:16 99 H 96 0322/21 20:11 99 H 97 0322/21 20:06 121 H 98 0322/21 20:01 108 H 97 0322/21 19:57 105 H 108/61 0322/21 19:56 98 H 98 0322/21 19:54 98.5 F 20 97 0322/21 19:51 108 H 97 0322/21 19:46 106 H 99 0322/21 19:41 93 H 99 0322/21 19:36 103 H 98 0322/21 19:31 96 H 98 0322/21 19:27 99 H 103/57 0322/21 19:26 109 H 97 0322/21 19:21 102 H 97 0322/21 19:16 110 H 97 03/22/21 19:11 88 98 03/22/21 19:06 103 H 97 0322/21 19:01 107 H 97 03/22/21 18:56 94 H 97 0322/21 18:51 90 98 03/22/21 18:48 96 H 110/61 0322/21 18:46 98 H 99 03/22/21 18:41 95 H 98 09/01/20 18:36 93 H 98 09/01/20 18:33 100 H 116/66 09/01/20 18:31 106 H 98 09/01/20 18:26 115 H 99 09/01/20 18:21 107 H 98 09/01/20 18:18 103 H 122/70 09/01/20 18:16 93 H 97 09/01/20 18:11 89 98 09/01/20 18:06 99 H 99 09/01/20 18:03 98.3 F 99 H 18 125/75 125/75 97 09/01/20 18:01 100 H 98 09/01/20 17:56 106 H 96 09/01/20 17:51 107 H 98 09/01/20 17:49 101 H 147/63 09/01/20 17:46 96 H 98 09/01/20 17:41 101 H 97 09/01/20 17:36 89 97 09/01/20 17:33 88 118/69 09/01/20 17:31 87 96 09/01/20 17:26 85 96 09/01/20 17:21 89 97 09/01/20 17:18 90 119/69 09/01/20 17:16 88 96 09/01/20 17:11 90 96 09/01/20 17:07 18 09/01/20 17:06 91 H 96 09/01/20 17:04 83 120/67 09/01/20 17:01 90 97 09/01/20 16:56 93 H 95 09/01/20 16:51 103 H 97 09/01/20 16:49 122 H 92 09/01/20 16:45 94 H 98 09/01/20 16:40 102 H 97 09/01/20 16:35 112 H 96 09/01/20 16:34 103 H 144/93 09/01/20 16:30 107 H 96 09/01/20 16:29 100 H 94 09/01/20 16:25 106 H 95 09/01/20 16:20 105 H 96 09/01/20 16:19 103 H 94 09/01/20 16:18 99 H 127/62 09/01/20 16:15 51 L 98 09/01/20 16:10 82 96 09/01/20 16:05 83 86 09/01/20 16:03 100 H 133/61 09/01/20 16:00 107 H 18 99 09/01/20 15:54 121 H 98 09/01/20 15:49 137 H 145/74 96 09/01/20 15:44 110 H 95 09/01/20 15:39 115 H 97 09/01/20 15:34 120 H 143/65 100 09/01/20 15:29 77 97 09/01/20 15:26 125 H 142/82 09/01/20 15:24 36 L 94 09/01/20 15:19 148 H 162/107 97 09/01/20 15:14 115 H 99 09/01/20 15:08 69 97 09/01/20 15:07 118 H 135/75 09/01/20 15:05 123 H 210/106 09/01/20 15:03 128 H 98 09/01/20 14:58 105 H 99 09/01/20 14:53 104 H 97 09/01/20 14:48 98 H 141/95 98 09/01/20 14:43 96 H 98 09/01/20 14:38 94 H 97 09/01/20 14:34 88 137/90 09/01/20 14:33 93 H 98 09/01/20 14:28 93 H 98 09/01/20 14:23 98.1 F 89 20 146/87 146/87 96 09/01/20 14:19 88 149/101 09/01/20 14:18 90 98 09/01/20 14:13 113 H 98 09/01/20 14:08 93 H 98 09/01/20 14:04 83 120/80 09/01/20 14:03 87 97 09/01/20 13:58 99 H 97 09/01/20 13:53 112 H 98 09/01/20 13:49 91 H 136/87 09/01/20 13:48 97 H 98 09/01/20 13:43 101 H 96 09/01/20 13:38 91 H 97 09/01/20 13:35 101 H 116/95 09/01/20 13:33 99 H 95 09/01/20 13:29 100 H 94 09/01/20 13:28 98 H 97 09/01/20 13:23 99 H 98 09/01/20 13:19 98 H 130/95 09/01/20 13:18 95 H 96 09/01/20 13:13 92 H 97 09/01/20 13:10 92 H 94 09/01/20 13:08 92 H 97 09/01/20 13:05 96 H 132/85 09/01/20 13:03 93 H 95 09/01/20 12:58 102 H 95 09/01/20 12:53 95 H 97 09/01/20 12:49 94 H 134/83 09/01/20 12:48 94 H 97 09/01/20 12:43 91 H 97 09/01/20 12:38 92 H 98 09/01/20 12:33 91 H 131/74 98 09/01/20 12:28 93 H 98 09/01/20 12:23 112 H 97 09/01/20 12:19 98 H 149/85 09/01/20 12:18 93 H 97 09/01/20 12:13 90 96 09/01/20 12:08 91 H 97 09/01/20 12:05 93 H 133/78 09/01/20 12:03 93 H 97 09/01/20 11:58 92 H 97 09/01/20 11:53 91 H 97 09/01/20 11:49 92 H 131/86 09/01/20 11:48 91 H 98 09/01/20 11:43 91 H 97 09/01/20 11:38 94 H 97 09/01/20 11:34 90 129/82 09/01/20 11:33 89 97 09/01/20 11:28 91 H 100 09/01/20 11:23 87 98 09/01/20 11:18 86 147/88 98 09/01/20 11:13 89 97 09/01/20 11:08 87 97 09/01/20 11:04 85 135/84 09/01/20 11:03 86 97 09/01/20 10:58 86 97 09/01/20 10:53 84 98 09/01/20 10:49 85 135/69 09/01/20 10:48 88 96 09/01/20 10:43 84 97 09/01/20 10:38 89 97 09/01/20 10:34 89 131/85 94 09/01/20 10:33 94 H 97 09/01/20 10:28 91 H 99 09/01/20 10:23 100 H 98 09/01/20 10:19 97.1 F L 91 H 16 125/83 97 09/01/20 10:18 91 H 97 09/01/20 10:15 85 125/83 09/01/20 10:13 90 98 09/01/20 10:08 97 H 97 09/01/20 10:04 84 126/73 09/01/20 10:03 85 97 09/01/20 09:58 86 97 09/01/20 09:54 87 128/81 09/01/20 09:53 89 97 09/01/20 09:48 92 H 97 09/01/20 09:45 94 H 134/78 Intake and Output 09/01/20 09/02/20 09/02/20 22:59 06:59 14:59 Intake Total 083.744 2456.917 0 Output Total 550 550 Balance -373.333 847.917 0 Intake: IV 897.107 4040.917 Lactated Ringers 1,000 ml 1397.917 @ 125 mls/hr IV DIRECT EMMANUEL Rx#:[id number] MAGNESIUM SULFATE 40GM/ 176.667 1000ML 40 gm In 1,000 ml @ 2 GM/HR 50 mls/hr IV DIRECT EMMANUEL Rx#:[id number] Blood Product 0 Leukoreduced Red Blood 0 Cells Unit [id number] Output: Urine 550 550 Indwelling 100 Indwelling Catheter 450 550 Other: Total, Output Amount 100 200 Estimated Blood Loss 400 - Exam Breasts: Present: normal Abdomen: Present: normal appearance, soft, normal bowel sounds Vulva: left: laceration/episiotomy (edematous labia), both: normal (edematous) Uterus: Present: normal, firm, fundal height below umbilicus Extremities: Present: normal Incision: Present: normal, intact - Labs Labs: Abnormal lab results 08/31/20 09/01/20 09/01/20 Range/Units 18:30 13:12 16:45 WBC (4.5-11.0) K/mm3 RBC (3.65-5.03) M/mm3 Hgb (10.1-14.3) gm/dl Hct (30.3-42.9) % MCV (79-97) fl MCH (28-32) pg Plt Count (140-440) K/mm3 [place] % (Auto) (0.0-7.3) % [place] # (Auto) (0.0-0.8) K/mm3 Seg Neutrophils % (40.0-70.0) % Seg Neutrophils # (1.8-7.7) K/mm3 ABG pH 6.964 L (7.320-7.450) POC ABG pCO2 69.8 H (32.0-48.0) mmHg POC ABG pO2 13.5 L (83-108) mmHg ABG Oxyhemoglobin 11.6 L (94-98) ABG Sodium 132.3 L (136.0-145.0) mmol/L ABG Glucose 110 H (65-95) mg/dL Carboxyhemoglobin 0.4 L (0.5-1.5) Magnesium 4.40 H (1.7-2.3) mg/dL Arterial Blood Glucose 110 H (65-95) mg/dL Arterial Blood Ionized Calcium 5.5 H (4.6-5.3) mg/dL Crossmatch See Detail 09/01/20 09/01/20 09/02/20 Range/Units 18:50 22:59 00:44 WBC (4.5-11.0) K/mm3 RBC (3.65-5.03) M/mm3 Hgb 9.4 L D (10.1-14.3) gm/dl Hct 27.6 L D (30.3-42.9) % MCV (79-97) fl MCH (28-32) pg Plt Count (140-440) K/mm3 [place] % (Auto) (0.0-7.3) % [place] # (Auto) (0.0-0.8) K/mm3 Seg Neutrophils % (40.0-70.0) % Seg Neutrophils # (1.8-7.7) K/mm3 ABG pH (7.320-7.450) POC ABG pCO2 (32.0-48.0) mmHg POC ABG pO2 (83-108) mmHg ABG Oxyhemoglobin (94-98) ABG Sodium (136.0-145.0) mmol/L ABG Glucose (65-95) mg/dL Carboxyhemoglobin (0.5-1.5) Magnesium 5.30 H 4.60 H (1.7-2.3) mg/dL Arterial Blood Glucose (65-95) mg/dL Arterial Blood Ionized Calcium (4.6-5.3) mg/dL Crossmatch 09/02/20 09/02/20 Range/Units 05:45 05:45 WBC 14.2 H (4.5-11.0) K/mm3 RBC 2.22 L (3.65-5.03) M/mm3 Hgb 7.6 L (10.1-14.3) gm/dl Hct 22.0 L (30.3-42.9) % MCV 99 H (79-97) fl MCH 34 H (28-32) pg Plt Count 122 L (140-440) K/mm3 [place] % (Auto) 8.4 H (0.0-7.3) % [place] # (Auto) 1.2 H (0.0-0.8) K/mm3 Seg Neutrophils % 74.4 H (40.0-70.0) % Seg Neutrophils # 10.5 H (1.8-7.7) K/mm3 ABG pH (7.320-7.450) POC ABG pCO2 (32.0-48.0) mmHg POC ABG pO2 (83-108) mmHg ABG Oxyhemoglobin (94-98) ABG Sodium (136.0-145.0) mmol/L ABG Glucose (65-95) mg/dL Carboxyhemoglobin (0.5-1.5) Magnesium 3.50 H (1.7-2.3) mg/dL Arterial Blood Glucose (65-95) mg/dL Arterial Blood Ionized Calcium (4.6-5.3) mg/dL Crossmatch
[2020-09-02] MEDS ORDERED: oxyCODONE /ACETAMINOPHEN 5-325MG TAB PO NR (10:09)
[2020-09-02] MEDS ORDERED: PNV PRENATAL PLUS MULTIVIT PO SCH (11:57)
[2020-09-02] MEDS ORDERED: BENZOCAINE/MENTHOL 20/0.5% TOP SPRAY 56 GM TP PRN (17:41)
[2020-09-02] MEDS: FERROUS SULFATE 325 MG TAB PO SCH ×2 (18:15→22:13)
[2020-09-02] MEDS: PRENATAL VIT27-FE FUMARATE-FOLIC ACID VIT TAB PO SCH (18:16)
[2020-09-02 19:01] LABS: Hematocrit 32.1 % (30.3-42.9)
[2020-09-03] MEDS: IBUPROFEN 600 MG TAB PO SCH ×3 (05:37→17:57)
--- NOTE | 2020-09-03 08:56 | Progress Note ---
Assessment and Plan routine PP care Rustam Quintanilla MD Subjective - Subjective Date of service: 09/03/20 Principal diagnosis: with PPH Interval history: stable for d/c to home after 48 hours Hemorrhage resolved, anemia treated with PRBC's plan for routine PP care and outpatient fup PE benign Rustam Quintanilla MD Patient reports: appetite normal, voiding normally, pain well controlled, ambulating normally Objective - Vital Signs Latest vital signs: Vital Signs Temp Pulse Resp BP BP Pulse Ox 09/03/20 05:50 98.2 F 71 20 127/87 96 09/03/20 01:37 98.2 F 77 20 122/85 96 09/02/20 20:49 98.3 F 84 20 127/87 99 09/02/20 15:24 98.2 F 83 16 130/95 99 09/02/20 13:43 98.2 F 80 16 122/87 100 09/02/20 13:36 98.0 F 78 16 115/70 100 09/02/20 13:06 98.5 F 88 18 118/72 09/02/20 12:30 98.0 F 81 18 118/72 100 09/02/20 10:52 88 100 09/02/20 10:51 86 121/76 09/02/20 10:50 98.7 F 90 20 121/76 100 09/02/20 10:47 94 H 100 09/02/20 10:42 89 100 09/02/20 10:37 100 H 99 09/02/20 10:32 105 H 97 09/02/20 10:27 101 H 98 09/02/20 10:22 90 98 09/02/20 10:21 90 125/76 09/02/20 10:20 98.3 F 90 20 125/76 98 09/02/20 10:17 92 H 98 09/02/20 10:12 93 H 99 09/02/20 10:10 98.2 F 86 18 127/77 99 09/02/20 10:07 89 100 09/02/20 10:02 97 H 99 09/02/20 09:57 91 H 99 09/02/20 09:52 98.4 F 82 20 120/82 100 09/02/20 09:51 88 120/82 09/02/20 09:47 88 99 09/02/20 09:42 78 100 09/02/20 09:37 82 99 09/02/20 09:35 98.6 F 82 20 127/84 98 09/02/20 09:32 98.5 F 82 20 125/79 100 09/02/20 09:30 78 125/79 09/02/20 09:27 81 100 09/02/20 09:25 98.3 F 81 16 114/76 100 09/02/20 09:22 86 100 09/02/20 09:21 85 126/80 09/02/20 09:20 98.1 F 90 12 126/80 100 09/02/20 09:17 85 100 09/02/20 09:12 82 100 09/02/20 09:07 80 100 09/02/20 09:02 101 H 100 09/02/20 08:57 88 100 Intake and Output 09/02/20 09/03/20 09/03/20 23:59 07:59 15:59 Intake Total 240 Output Total 700 Balance -700 240 Intake: Oral 240 Output: Urine 700 Void 700 Other: Total, Intake Amount 240 Total, Output Amount 300 # Voids Void 1 1 - Exam Breasts: Present: normal Cardiovascular: Present: Normal S1 Lungs: Present: Clear to auscultation Abdomen: Present: normal appearance, soft, normal bowel sounds Uterus: Present: normal, firm, fundal height above umbilicus Extremities: Present: normal Deep Tendon Reflex Grade: Normal +2 - Labs Labs: Abnormal lab results 08/31/20 Range/Units 18:30 Crossmatch See Detail
[2020-09-03] MEDS: PRENATAL VIT27-FE FUMARATE-FOLIC ACID VIT TAB PO SCH (11:22)
[2020-09-03] MEDS: FERROUS SULFATE 325 MG TAB PO SCH ×3 (11:23→21:51)
[2020-09-04] MEDS: IBUPROFEN 600 MG TAB PO SCH ×2 (00:31→10:49)
[2020-09-04] MEDS: FERROUS SULFATE 325 MG TAB PO SCH ×3 (10:49→20:28)
[2020-09-04] MEDS: PRENATAL VIT27-FE FUMARATE-FOLIC ACID VIT TAB PO SCH (10:49)
--- NOTE | 2020-09-04 11:14 | Progress Note ---
Assessment and Plan A: S/P with delayed PPH p: Continue routine pp care D/C home tomm if stable per MD - Patient Problems (1) (normal spontaneous vaginal delivery) Current Visit: Yes Status: Acute (2) PPH ( hemorrhage) Current Visit: Yes Status: Acute Subjective - Subjective Date of service: 09/04/20 Principal diagnosis: with PPH Patient reports: appetite normal, voiding normally, pain well controlled, ambulating normally : doing well, bottle feeding Objective - Vital Signs Latest vital signs: Vital Signs Temp Pulse Resp BP BP Pulse Ox 09/04/20 09:05 98.4 F 77 18 138/92 96 09/04/20 04:30 98.6 F 66 16 115/78 09/04/20 01:12 98.8 F 77 18 122/72 09/03/20 20:40 98.0 F 84 18 130/98 98 09/03/20 17:36 97.7 F 88 18 142/100 98 09/03/20 11:18 98.2 F 84 18 134/93 96 Intake and Output 09/03/20 09/04/20 09/04/20 22:59 06:59 14:59 Intake Total 200 200 Balance 200 200 Intake: Oral 200 Intake, Free Water 200 Other: Total, Intake Amount 200 # Voids Void 1 1 - Exam Breasts: Present: normal Abdomen: Present: normal appearance, soft, normal bowel sounds Vulva: both: normal, laceration/episiotomy Uterus: Present: normal, firm, fundal height below umbilicus Extremities: Present: normal Incision: Present: normal, intact
[2020-09-05] MEDS ORDERED: hydrALAZINE 20 MG/1 ML INJ IV ONE (00:56)
[2020-09-05] MEDS: IBUPROFEN 600 MG TAB PO SCH (01:47)
--- NOTE | 2020-09-05 02:55 | Event Note ---
Date: 09/05/20 Call received from nurse re pt's elevated b/p. B/p was 140/104. Pt denied pain, bartholomew,visual problems, or epigastric pain. Hydrazaline 10mg IV and b/p obs was ordered. Grinder Hand noted pt's last 3 b/ps were elevated w/o reported symptoms of preeclampsia. Pt was transferred back to L&D and started on MgSo4 and Labetalol 100mg bid. PIH labs and a [address] hr [address] was [address] Quintanilla was consulted.
[2020-09-05] MEDS ORDERED: MAGNESIUM SULFATE 4 GM/100 ML BAG IV ONE (02:57)
[2020-09-05] MEDS: LACTATED RINGERS 1,000 ML IV SCH ×2 (03:58→18:58)
[2020-09-05] MEDS: MAGNESIUM SULFATE 40GM/1000ML 40 GM/1,000 ML BAG IV SCH ×2 (04:10→23:43)
[2020-09-05 05:35] LABS: Bilirubin,Urine Negative (Negative); Color,Urine Straw (Yellow); Protein,Urine <15 mg/dL mg/dL (Negative)
[2020-09-05 05:36] LABS: Blood,Urine Negative (Negative); Urobilinogen,Urine < 2.0 mg/dL (<2.0)
[2020-09-05 08:38] LABS: Hematocrit 29.9 % (30.3-42.9); Hemoglobin 10.4 gm/dl (10.1-14.3); Mean Corpuscular HGB Conc 35 % (30-34); Mean Corpuscular Volume 96 fl (79-97); Platelet Count 195 K/mm3 (140-440); Red Blood Count 3.11 M/mm3 (3.65-5.03); Red Cell Distribution Width 14.9 % (13.2-15.2)
[2020-09-05 09:45] LABS: Protein/Creatinine Ratio,Urine 0.22
[2020-09-05] MEDS: FERROUS SULFATE 325 MG TAB PO SCH ×2 (10:12→20:22)
[2020-09-05] MEDS: PRENATAL VIT27-FE FUMARATE-FOLIC ACID VIT TAB PO SCH (10:13)
[2020-09-05 10:49] LABS: Alanine Aminotransferase 50 units/L (7-56); Uric Acid 4.9 mg/dL (3.5-7.6)
[2020-09-05] MEDS ORDERED: ACETAMINOPHEN 325 MG TAB PO ONE (20:51)
--- NOTE | 2020-09-05 20:54 | Progress Note ---
<GEORGIE GONZALEZ - Last Filed: 09/05/20 21:09> Assessment and Plan A: day 4 S/P . Preeclampsia with severe features. Anemia. P: Magnesium Sulfate to be continued until 09/06 at 03:00 am. Labetalol 200 mg po BID for control of BPs. Continue oral iron supplementation. Repeat CMP and platelet count tomorrow AM. Subjective - Subjective Date of service: 09/05/20 Principal diagnosis: day 4 S/P Interval history: day 4 S/P . Preeclampsia with severe features, receiving magnesium sulfate for prevention of seizures and receiving oral Labetalol for control of blood pressures. Patient reports mild frontal headache. Denies visual disturbance. Denies epigastric pain or RUQ pain. Denies chest pain, abdominal pain or leg pain. Small amount of lochia. Blood pressures are stable. Patient reports: appetite normal, pain well controlled, flatus, no nauseated [place]: doing well Objective - Vital Signs Latest vital signs: Vital Signs Temp Pulse Resp BP BP Pulse Ox 09/05/20 20:53 98 H 98 09/05/20 20:48 101 H 98 09/05/20 20:47 97 H 128/90 09/05/20 20:43 97 H 98 09/05/20 20:38 98 H 98 09/05/20 20:33 100 H 98 09/05/20 20:28 96 H 98 09/05/20 20:23 105 H 98 09/05/20 20:18 108 H 98 09/05/20 20:13 102 H 98 09/05/20 20:08 103 H 98 09/05/20 20:03 105 H 98 09/05/20 19:58 106 H 98 09/05/20 19:53 108 H 98 09/05/20 19:48 103 H 98 09/05/20 19:47 102 H 127/88 09/05/20 19:43 108 H 98 09/05/20 19:38 98.4 F 97 H 18 98 09/05/20 19:33 100 H 99 09/05/20 19:28 93 H 98 09/05/20 19:23 96 H 98 09/05/20 19:18 94 H 98 09/05/20 19:13 102 H 98 09/05/20 19:08 101 H 98 09/05/20 19:03 104 H 98 03 18:58 109 H 98 03 18:53 104 H 97 03 18:48 110 H 98 03 18:47 113 H 135/77 03 18:43 103 H 97 09/05/20 18:38 109 H 98 03 18:33 105 H 97 09/05/20 18:28 114 H 98 03 18:23 105 H 98 09/05/20 18:18 98 H 96 03 18:13 107 H 97 09/05/20 18:08 104 H 98 03 18:03 117 H 97 09/05/20 17:58 121 H 97 09/05/20 17:53 105 H 97 09/05/20 17:48 111 H 97 09/05/20 17:47 106 H 129/89 09/05/20 17:43 108 H 97 09/05/20 17:38 97 H 98 09/05/20 17:33 105 H 98 09/05/20 17:28 106 H 98 09/05/20 17:23 102 H 97 09/05/20 17:18 99 H 97 09/05/20 17:13 100 H 97 09/05/20 17:08 100 H 98 09/05/20 17:03 107 H 98 09/05/20 16:58 99 H 97 09/05/20 16:53 100 H 97 09/05/20 16:48 112 H 97 09/05/20 16:47 101 H 124/76 09/05/20 16:43 101 H 97 09/05/20 16:38 106 H 98 03 16:33 106 H 97 09/05/20 16:28 103 H 96 03 16:23 107 H 98 09/05/20 16:18 104 H 97 03 16:13 113 H 98 09/05/20 16:08 110 H 97 03 16:03 102 H 97 09/05/20 16:01 117 H 94 03 15:58 121 H 99 03 15:53 104 H 97 03 15:48 113 H 98 09/05/20 15:47 109 H 122/83 03 15:43 108 H 97 09/05/20 15:38 118 H 97 09/05/20 15:33 104 H 97 09/05/20 15:28 102 H 97 09/05/20 15:23 107 H 97 09/05/20 15:18 112 H 98 09/05/20 15:13 110 H 97 09/05/20 15:08 106 H 97 09/05/20 15:07 98.3 F 108 H 16 130/82 09/05/20 15:06 106 H 130/82 09/05/20 15:03 102 H 97 09/05/20 14:58 107 H 96 09/05/20 14:53 99 H 97 09/05/20 14:48 114 H 98 09/05/20 14:47 107 H 122/80 09/05/20 14:43 104 H 97 09/05/20 14:38 109 H 97 09/05/20 14:33 103 H 97 09/05/20 14:28 111 H 97 09/05/20 14:23 98 H 98 09/05/20 14:18 89 97 09/05/20 14:13 91 H 96 09/05/20 14:08 90 97 09/05/20 14:03 95 H 97 09/05/20 13:58 94 H 97 09/05/20 13:53 94 H 97 09/05/20 13:48 91 H 97 09/05/20 13:47 89 119/71 09/05/20 13:43 93 H 97 09/05/20 13:38 95 H 97 09/05/20 13:33 104 H 97 09/05/20 13:28 94 H 97 09/05/20 13:23 97 H 96 09/05/20 13:18 91 H 97 09/05/20 13:13 88 97 09/05/20 13:08 95 H 96 09/05/20 13:03 93 H 96 09/05/20 12:58 93 H 97 09/05/20 12:53 97 H 97 09/05/20 12:48 109 H 98 09/05/20 12:47 91 H 118/69 09/05/20 12:43 96 H 97 09/05/20 12:38 101 H 97 09/05/20 12:33 89 98 09/05/20 12:28 95 H 97 03/26/21 12:23 102 H 96 09/05/20 12:18 96 H 98 09/05/20 12:17 98.1 F 94 H 16 118/73 118/73 09/05/20 12:13 95 H 97 09/05/20 12:08 99 H 97 09/05/20 12:03 102 H 97 09/05/20 11:59 104 H 94 09/05/20 11:58 108 H 97 09/05/20 11:53 106 H 97 09/05/20 11:48 111 H 97 09/05/20 11:47 102 H 124/69 09/05/20 11:43 110 H 96 09/05/20 11:38 115 H 97 09/05/20 11:33 102 H 96 09/05/20 11:28 102 H 96 09/05/20 11:23 104 H 96 09/05/20 11:18 104 H 96 09/05/20 11:13 101 H 96 09/05/20 11:08 101 H 96 09/05/20 11:03 101 H 95 09/05/20 10:58 104 H 95 09/05/20 10:53 109 H 96 09/05/20 10:48 105 H 96 09/05/20 10:47 102 H 117/65 09/05/20 10:43 116 H 98 09/05/20 10:38 111 H 96 09/05/20 10:33 121 H 96 09/05/20 10:28 119 H 97 09/05/20 10:23 118 H 96 09/05/20 10:18 117 H 96 09/05/20 10:13 121 H 96 09/05/20 10:11 154/86 09/05/20 10:10 98.2 F 09/05/20 10:08 121 H 96 09/05/20 10:03 119 H 97 09/05/20 09:58 137 H 97 09/05/20 09:53 115 H 98 09/05/20 09:48 120 H 96 09/05/20 09:47 115 H 154/86 09/05/20 09:43 127 H 97 09/05/20 09:38 115 H 98 09/05/20 09:33 120 H 98 09/05/20 09:28 102 H 97 09/05/20 09:23 94 H 97 09/05/20 09:18 94 H 97 09/05/20 09:13 94 H 97 09/05/20 09:08 101 H 97 09/05/20 09:03 103 H 97 09/05/20 08:58 109 H 98 09/05/20 08:53 105 H 98 09/05/20 08:48 100 H 98 09/05/20 08:47 93 H 125/77 09/05/20 08:43 95 H 98 09/05/20 08:38 97 H 98 09/05/20 08:33 97 H 98 09/05/20 08:28 105 H 98 09/05/20 08:23 107 H 98 09/05/20 08:18 107 H 99 09/05/20 08:13 104 H 99 09/05/20 08:08 96 H 98 09/05/20 08:03 92 H 98 09/05/20 07:58 88 98 09/05/20 07:53 113 H 99 09/05/20 07:48 98 H 98 09/05/20 07:47 90 124/78 09/05/20 07:43 91 H 98 09/05/20 07:38 99 H 99 09/05/20 07:33 92 H 98 09/05/20 07:28 99 H 98 09/05/20 07:23 96 H 98 09/05/20 07:18 97 H 98 09/05/20 07:13 93 H 98 09/05/20 07:08 91 H 99 09/05/20 07:03 103 H 98 09/05/20 06:58 96 H 98 09/05/20 06:53 94 H 98 09/05/20 06:48 93 H 98 09/05/20 06:47 86 137/81 09/05/20 06:43 90 98 09/05/20 06:38 89 98 09/05/20 06:33 92 H 98 09/05/20 06:28 90 99 09/05/20 06:23 89 98 09/05/20 06:18 88 99 09/05/20 06:13 93 H 98 09/05/20 06:08 86 99 09/05/20 06:03 80 98 09/05/20 05:58 85 98 09/05/20 05:53 83 97 09/05/20 05:48 92 H 98 09/05/20 05:47 82 117/72 09/05/20 05:43 84 98 09/05/20 05:38 82 98 09/05/20 05:33 82 98 09/05/20 05:28 81 98 09/05/20 05:23 87 98 09/05/20 05:18 81 98 09/05/20 05:13 84 98 09/05/20 05:08 95 H 98 09/05/20 05:03 91 H 97 09/05/20 04:58 89 97 09/05/20 04:53 82 98 09/05/20 04:48 85 98 09/05/20 04:47 78 117/68 09/05/20 04:43 81 98 09/05/20 04:38 87 98 09/05/20 04:33 88 98 09/05/20 04:28 86 98 09/05/20 04:23 89 98 09/05/20 04:18 96 H 98 09/05/20 04:13 88 98 09/05/20 04:08 95 H 98 09/05/20 04:03 103 H 98 09/05/20 03:58 95 H 98 09/05/20 03:53 97 H 98 09/05/20 03:48 101 H 98 09/05/20 03:47 90 118/74 09/05/20 03:43 93 H 98 09/05/20 03:38 91 H 98 09/05/20 03:33 87 98 09/05/20 02:48 112 H 16 139/101 100 09/05/20 01:09 72 151/97 09/04/20 23:49 140/104 09/04/20 23:45 97.8 F 78 18 137/100 99 09/04/20 23:43 97.8 F 78 18 137/100 99 Intake and Output 09/05/20 09/05/20 09/05/20 07:59 15:59 23:59 Intake Total 1000 Output Total 1950 850 Balance -950 -850 Intake: IV 1000 Lactated Ringers 1,000 ml 1000 @ 125 mls/hr IV DIRECT EMMANUEL Rx#:[id number] Output: Urine 1950 850 Indwelling Catheter 1350 850 Void 600 Other: Total, Output Amount 950 850 - Exam Cardiovascular: Present: Regular rate, No murmurs Lungs: Present: Clear to auscultation Abdomen: Present: normal appearance, soft, normal bowel sounds. Absent: distention, tenderness, guarding, rigidity Uterus: Present: normal, firm, fundal height below umbilicus. Absent: bogginess, tenderness Extremities: Present: normal. Absent: tenderness - Labs Labs: Abnormal lab results 09/05/20 09/05/20 09/05/20 Range/Units 07:04 07:04 14:20 WBC 12.9 H (4.5-11.0) K/mm3 RBC 3.11 L (3.65-5.03) M/mm3 Hct 29.9 L (30.3-42.9) % MCH 33 H (28-32) pg MCHC 35 H (30-34) % Creatinine 0.4 L (0.6-1.2) mg/dL Magnesium 5.60 H (1.7-2.3) mg/dL AST 58 H (5-40) units/L Lactate Dehydrogenase 214 H (91-180) units/L 09/05/20 Range/Units 17:58 WBC (4.5-11.0) K/mm3 RBC (3.65-5.03) M/mm3 Hct (30.3-42.9) % MCH (28-32) pg MCHC (30-34) % Creatinine (0.6-1.2) mg/dL Magnesium 5.70 H (1.7-2.3) mg/dL AST (5-40) units/L Lactate Dehydrogenase (91-180) units/L <JELENA BAUTISTA - Last Filed: 09/05/20 23:02> Assessment and Plan I evaluated patient after CNLeilaniW Georgie, with dimnishing headache and BP normal on labetalol 200mg with IV Magnesium sulfate still in progress. Pt denies palpitations, shortness of breath or chest pain; No Fundal tenderness, Lochia moderate; however, pt remains with mild tacchycardia and therefore I will do complete CBC, not just platelets and Georgie notified. Agree with CMP for liver enzyme trends. Objective - Vital Signs Latest vital signs: Vital Signs Temp Pulse Resp BP BP Pulse Ox 09/05/20 22:58 110 H 97 09/05/20 22:53 112 H 97 09/05/20 22:48 114 H 97 03//21 22:47 112 H 135/92 03//21 22:43 111 H 98 03//21 22:38 109 H 97 03//21 22:33 111 H 97 03//21 22:28 107 H 98 03//21 22:23 105 H 97 03//21 22:18 108 H 98 03//21 22:13 105 H 97 03/21 22:08 104 H 98 03/21 22:03 108 H 97 03/21 21:58 107 H 98 03/21 21:53 115 H 137/83 99 03/21 21:48 125 H 98 03/ 21:47 107 H 137/83 03/21 21:43 96 H 98 03/ 21:38 98 H 97 03/ 21:33 100 H 98 03/ 21:28 99 H 97 03/ 21:23 98 H 98 03 21:18 101 H 98 03/21 21:13 100 H 98 03/21 21:08 105 H 98 03/21 21:03 112 H 98 03/21 20:58 99 H 98 03/21 20:53 98 H 98 03//21 20:48 101 H 98 03/21 20:47 97 H 128/90 03/21 20:43 97 H 98 03//21 20:38 98 H 98 03//21 20:33 100 H 98 03//21 20:28 96 H 98 03//21 20:23 105 H 98 03//21 20:18 108 H 98 03//21 20:13 102 H 98 03//21 20:08 103 H 98 03/26/21 20:03 105 H 98 03//21 19:58 106 H 98 03//21 19:53 108 H 98 03//21 19:48 103 H 98 03//21 19:47 102 H 127/88 03/21 19:43 108 H 98 03//21 19:38 98.4 F 97 H 18 98 03//21 19:33 100 H 99 03//21 19:28 93 H 98 03//21 19:23 96 H 98 03 19:18 94 H 98 03 19:13 102 H 98 03 19:08 101 H 98 03 19:03 104 H 98 03 18:58 109 H 98 09/05/20 18:53 104 H 97 03 18:48 110 H 98 09/05/20 18:47 113 H 135/77 03 18:43 103 H 97 03 18:38 109 H 98 03 18:33 105 H 97 03 18:28 114 H 98 09/05/20 18:23 105 H 98 09/05/20 18:18 98 H 96 09/05/20 18:13 107 H 97 03 18:08 104 H 98 09/05/20 18:03 117 H 97 09/05/20 17:58 121 H 97 09/05/20 17:53 105 H 97 09/05/20 17:48 111 H 97 03 17:47 106 H 129/89 09/05/20 17:43 108 H 97 09/05/20 17:38 97 H 98 09/05/20 17:33 105 H 98 09/05/20 17:28 106 H 98 09/05/20 17:23 102 H 97 09/05/20 17:18 99 H 97 09/05/20 17:13 100 H 97 09/05/20 17:08 100 H 98 09/05/20 17:03 107 H 98 09/05/20 16:58 99 H 97 03 16:53 100 H 97 03 16:48 112 H 97 09/05/20 16:47 101 H 124/76 03 16:43 101 H 97 09/05/20 16:38 106 H 98 09/05/20 16:33 106 H 97 09/05/20 16:28 103 H 96 03 16:23 107 H 98 09/05/20 16:18 104 H 97 03 16:13 113 H 98 09/05/20 16:08 110 H 97 03 16:03 102 H 97 03 16:01 117 H 94 03 15:58 121 H 99 09/05/20 15:53 104 H 97 09/05/20 15:48 113 H 98 09/05/20 15:47 109 H 122/83 09/05/20 15:43 108 H 97 09/05/20 15:38 118 H 97 09/05/20 15:33 104 H 97 09/05/20 15:28 102 H 97 09/05/20 15:23 107 H 97 09/05/20 15:18 112 H 98 09/05/20 15:13 110 H 97 09/05/20 15:08 106 H 97 09/05/20 15:07 98.3 F 108 H 16 130/82 09/05/20 15:06 106 H 130/82 09/05/20 15:03 102 H 97 09/05/20 14:58 107 H 96 09/05/20 14:53 99 H 97 09/05/20 14:48 114 H 98 09/05/20 14:47 107 H 122/80 09/05/20 14:43 104 H 97 09/05/20 14:38 109 H 97 09/05/20 14:33 103 H 97 09/05/20 14:28 111 H 97 09/05/20 14:23 98 H 98 09/05/20 14:18 89 97 09/05/20 14:13 91 H 96 09/05/20 14:08 90 97 09/05/20 14:03 95 H 97 09/05/20 13:58 94 H 97 09/05/20 13:53 94 H 97 09/05/20 13:48 91 H 97 09/05/20 13:47 89 119/71 09/05/20 13:43 93 H 97 09/05/20 13:38 95 H 97 09/05/20 13:33 104 H 97 09/05/20 13:28 94 H 97 09/05/20 13:23 97 H 96 09/05/20 13:18 91 H 97 09/05/20 13:13 88 97 09/05/20 13:08 95 H 96 09/05/20 13:03 93 H 96 09/05/20 12:58 93 H 97 09/05/20 12:53 97 H 97 09/05/20 12:48 109 H 98 09/05/20 12:47 91 H 118/69 09/05/20 12:43 96 H 97 09/05/20 12:38 101 H 97 09/05/20 12:33 89 98 09/05/20 12:28 95 H 97 09/05/20 12:23 102 H 96 09/05/20 12:18 96 H 98 09/05/20 12:17 98.1 F 94 H 16 118/73 118/73 09/05/20 12:13 95 H 97 09/05/20 12:08 99 H 97 09/05/20 12:03 102 H 97 09/05/20 11:59 104 H 94 09/05/20 11:58 108 H 97 09/05/20 11:53 106 H 97 09/05/20 11:48 111 H 97 09/05/20 11:47 102 H 124/69 09/05/20 11:43 110 H 96 09/05/20 11:38 115 H 97 09/05/20 11:33 102 H 96 09/05/20 11:28 102 H 96 09/05/20 11:23 104 H 96 09/05/20 11:18 104 H 96 09/05/20 11:13 101 H 96 09/05/20 11:08 101 H 96 09/05/20 11:03 101 H 95 09/05/20 10:58 104 H 95 09/05/20 10:53 109 H 96 09/05/20 10:48 105 H 96 09/05/20 10:47 102 H 117/65 09/05/20 10:43 116 H 98 09/05/20 10:38 111 H 96 09/05/20 10:33 121 H 96 09/05/20 10:28 119 H 97 09/05/20 10:23 118 H 96 09/05/20 10:18 117 H 96 09/05/20 10:13 121 H 96 09/05/20 10:11 154/86 09/05/20 10:10 98.2 F 09/05/20 10:08 121 H 96 09/05/20 10:03 119 H 97 09/05/20 09:58 137 H 97 09/05/20 09:53 115 H 98 09/05/20 09:48 120 H 96 09/05/20 09:47 115 H 154/86 09/05/20 09:43 127 H 97 09/05/20 09:38 115 H 98 09/05/20 09:33 120 H 98 09/05/20 09:28 102 H 97 09/05/20 09:23 94 H 97 09/05/20 09:18 94 H 97 09/05/20 09:13 94 H 97 09/05/20 09:08 101 H 97 09/05/20 09:03 103 H 97 09/05/20 08:58 109 H 98 09/05/20 08:53 105 H 98 09/05/20 08:48 100 H 98 09/05/20 08:47 93 H 125/77 09/05/20 08:43 95 H 98 09/05/20 08:38 97 H 98 09/05/20 08:33 97 H 98 09/05/20 08:28 105 H 98 09/05/20 08:23 107 H 98 09/05/20 08:18 107 H 99 09/05/20 08:13 104 H 99 09/05/20 08:08 96 H 98 09/05/20 08:03 92 H 98 09/05/20 07:58 88 98 09/05/20 07:53 113 H 99 09/05/20 07:48 98 H 98 09/05/20 07:47 90 124/78 09/05/20 07:43 91 H 98 09/05/20 07:38 99 H 99 09/05/20 07:33 92 H 98 09/05/20 07:28 99 H 98 09/05/20 07:23 96 H 98 09/05/20 07:18 97 H 98 09/05/20 07:13 93 H 98 09/05/20 07:08 91 H 99 09/05/20 07:03 103 H 98 09/05/20 06:58 96 H 98 09/05/20 06:53 94 H 98 09/05/20 06:48 93 H 98 09/05/20 06:47 86 137/81 09/05/20 06:43 90 98 09/05/20 06:38 89 98 09/05/20 06:33 92 H 98 09/05/20 06:28 90 99 09/05/20 06:23 89 98 09/05/20 06:18 88 99 09/05/20 06:13 93 H 98 09/05/20 06:08 86 99 09/05/20 06:03 80 98 09/05/20 05:58 85 98 09/05/20 05:53 83 97 09/05/20 05:48 92 H 98 09/05/20 05:47 82 117/72 09/05/20 05:43 84 98 09/05/20 05:38 82 98 09/05/20 05:33 82 98 09/05/20 05:28 81 98 09/05/20 05:23 87 98 09/05/20 05:18 81 98 09/05/20 05:13 84 98 09/05/20 05:08 95 H 98 09/05/20 05:03 91 H 97 09/05/20 04:58 89 97 09/05/20 04:53 82 98 09/05/20 04:48 85 98 09/05/20 04:47 78 117/68 09/05/20 04:43 81 98 09/05/20 04:38 87 98 09/05/20 04:33 88 98 09/05/20 04:28 86 98 09/05/20 04:23 89 98 09/05/20 04:18 96 H 98 09/05/20 04:13 88 98 09/05/20 04:08 95 H 98 09/05/20 04:03 103 H 98 09/05/20 03:58 95 H 98 09/05/20 03:53 97 H 98 09/05/20 03:48 101 H 98 09/05/20 03:47 90 118/74 09/05/20 03:43 93 H 98 09/05/20 03:38 91 H 98 09/05/20 03:33 87 98 09/05/20 02:48 112 H 16 139/101 100 09/05/20 01:09 72 151/97 09/04/20 23:49 140/104 09/04/20 23:45 97.8 F 78 18 137/100 99 09/04/20 23:43 97.8 F 78 18 137/100 99 Intake and Output 09/05/20 09/05/20 09/05/20 07:59 15:59 23:59 Intake Total 1000 Output Total 1950 850 Balance -950 -850 Intake: IV 1000 Lactated Ringers 1,000 ml 1000 @ 125 mls/hr IV DIRECT EMMANUEL Rx#:[id number] Output: Urine 1950 850 Indwelling Catheter 1350 850 Void 600 Other: Total, Output Amount 950 850 - Labs Labs: Abnormal lab results 09/05/20 09/05/20 09/05/20 Range/Units 07:04 07:04 14:20 WBC 12.9 H (4.5-11.0) K/mm3 RBC 3.11 L (3.65-5.03) M/mm3 Hct 29.9 L (30.3-42.9) % MCH 33 H (28-32) pg MCHC 35 H (30-34) % Creatinine 0.4 L (0.6-1.2) mg/dL Magnesium 5.60 H (1.7-2.3) mg/dL AST 58 H (5-40) units/L Lactate Dehydrogenase 214 H (91-180) units/L 09/05/20 Range/Units 17:58 WBC (4.5-11.0) K/mm3 RBC (3.65-5.03) M/mm3 Hct (30.3-42.9) % MCH (28-32) pg MCHC (30-34) % Creatinine (0.6-1.2) mg/dL Magnesium 5.70 H (1.7-2.3) mg/dL AST (5-40) units/L Lactate Dehydrogenase (91-180) units/L
[2020-09-05] MEDS ORDERED: diphenhydrAMINE 25 MG CAP PO ONE ×2 (23:38→23:42)
--- NOTE | 2020-09-06 06:28 | Progress Note ---
Assessment and Plan A: day 5 S/P . Preeclampsia with severe features. BPs controlled on Labetalol. Anemia, on oral iron supplementation. P: Await CBC and CMP results. Continue to monitor BPs. Continue oral iron supplementation. Subjective - Subjective Date of service: 09/06/20 Principal diagnosis: day 5 S/P Interval history: day 5 S/P . Preeclampsia with severe features. Magnesium Sulfate was stopped early this AM. Blood pressures are stable. Receiving Labetalol 200 mg po BID. Receiving oral iron supplementation for anemia. CBC and CMP have been ordered and have been drawn this AM. No symptoms or complaints this AM. Patient reports: appetite normal, voiding normally, pain well controlled, flatus, ambulating normally, no dizzy ambulation, no nauseated : doing well Objective - Vital Signs Latest vital signs: Vital Signs Temp Pulse Resp BP BP Pulse Ox 09/06/20 04:50 98.1 F 101 H 18 143/80 09/06/20 04:11 96 H 117/71 09/06/20 04:09 96 H 98 09/06/20 04:04 98 H 98 09/06/20 03:59 102 H 98 09/06/20 03:56 107 H 125/76 09/06/20 03:54 93 H 96 09/06/20 03:49 103 H 96 09/06/20 03:44 109 H 97 09/06/20 03:41 98.5 F 16 09/06/20 03:39 119 H 98 09/06/20 03:34 94 H 96 09/06/20 03:29 92 H 96 09/06/20 03:24 93 H 96 09/06/20 03:19 100 H 96 09/06/20 03:14 94 H 96 09/06/20 03:09 91 H 96 09/06/20 03:04 98 H 97 09/06/20 02:59 101 H 96 09/06/20 02:54 96 H 96 09/06/20 02:49 98 H 97 09/06/20 02:47 100 H 126/84 09/06/20 02:44 101 H 97 09/06/20 02:39 96 H 97 09/06/20 02:34 97 H 97 09/06/20 02:29 112 H 97 09/06/20 02:24 102 H 97 09/06/20 02:19 99 H 97 09/06/20 02:14 101 H 97 09/06/20 02:09 108 H 97 09/06/20 02:04 119 H 96 09/06/20 01:59 101 H 97 09/06/20 01:54 114 H 97 09/06/20 01:49 109 H 97 09/06/20 01:47 110 H 140/94 09/06/20 01:44 112 H 96 09/06/20 01:39 111 H 97 09/06/20 01:33 108 H 97 09/06/20 01:28 111 H 97 09/06/20 01:23 113 H 98 09/06/20 01:18 119 H 98 09/06/20 01:13 118 H 98 09/06/20 01:08 110 H 98 09/06/20 01:03 109 H 97 09/06/20 00:58 110 H 97 09/06/20 00:53 107 H 98 09/06/20 00:48 112 H 98 09/06/20 00:47 105 H 139/87 09/06/20 00:43 106 H 97 09/06/20 00:38 108 H 97 09/06/20 00:33 116 H 97 09/06/20 00:28 103 H 96 09/06/20 00:23 111 H 97 09/06/20 00:18 107 H 97 09/06/20 00:13 110 H 96 09/06/20 00:08 111 H 96 09/06/20 00:03 104 H 96 09/05/20 23:58 107 H 97 09/05/20 23:53 107 H 96 09/05/20 23:48 128 H 97 09/05/20 23:47 106 H 133/88 09/05/20 23:43 100 H 96 09/05/20 23:38 105 H 98 09/05/20 23:33 109 H 98 09/05/20 23:28 120 H 98 09/05/20 23:23 110 H 97 09/05/20 23:18 113 H 97 09/05/20 23:13 111 H 96 09/05/20 23:08 111 H 96 09/05/20 23:03 114 H 97 09/05/20 22:58 110 H 97 09/05/20 22:53 112 H 97 03/21 22:48 114 H 97 03//21 22:47 112 H 135/92 03//21 22:43 111 H 98 03/21 22:38 109 H 97 03/21 22:33 111 H 97 03/21 22:28 107 H 98 03/21 22:23 105 H 97 03/21 22:18 108 H 98 03/21 22:13 105 H 97 03/21 22:08 104 H 98 0321 22:03 108 H 97 03/21 21:58 107 H 98 03/ 21:53 115 H 137/83 99 03/21 21:48 125 H 98 03 21:47 107 H 137/83 03 21:43 96 H 98 03 21:38 98 H 97 03 21:33 100 H 98 03 21:28 99 H 97 03 21:23 98 H 98 03/21 21:18 101 H 98 03/21 21:13 100 H 98 03/21 21:08 105 H 98 03/21 21:03 112 H 98 03/21 20:58 99 H 98 03/21 20:53 98 H 98 03/21 20:48 101 H 98 03/21 20:47 97 H 128/90 03/21 20:43 97 H 98 03/21 20:38 98 H 98 03//21 20:33 100 H 98 03/21 20:28 96 H 98 03//21 20:23 105 H 98 03//21 20:18 108 H 98 03//21 20:13 102 H 98 03/26/21 20:08 103 H 98 03//21 20:03 105 H 98 03/21 19:58 106 H 98 03/21 19:53 108 H 98 03//21 19:48 103 H 98 03/21 19:47 102 H 127/88 03//21 19:43 108 H 98 03//21 19:38 98.4 F 97 H 18 98 03/21 19:33 100 H 99 03//21 19:28 93 H 98 03 19:23 96 H 98 03 19:18 94 H 98 03 19:13 102 H 98 03 19:08 101 H 98 03 19:03 104 H 98 09/05/20 18:58 109 H 98 03 18:53 104 H 97 03 18:48 110 H 98 03 18:47 113 H 135/77 03 18:43 103 H 97 09/05/20 18:38 109 H 98 03 18:33 105 H 97 03 18:28 114 H 98 09/05/20 18:23 105 H 98 09/05/20 18:18 98 H 96 09/05/20 18:13 107 H 97 09/05/20 18:08 104 H 98 09/05/20 18:03 117 H 97 09/05/20 17:58 121 H 97 09/05/20 17:53 105 H 97 09/05/20 17:48 111 H 97 09/05/20 17:47 106 H 129/89 09/05/20 17:43 108 H 97 09/05/20 17:38 97 H 98 09/05/20 17:33 105 H 98 09/05/20 17:28 106 H 98 09/05/20 17:23 102 H 97 09/05/20 17:18 99 H 97 09/05/20 17:13 100 H 97 09/05/20 17:08 100 H 98 09/05/20 17:03 107 H 98 03 16:58 99 H 97 03 16:53 100 H 97 09/05/20 16:48 112 H 97 0321 16:47 101 H 124/76 03 16:43 101 H 97 03 16:38 106 H 98 09/05/20 16:33 106 H 97 09/05/20 16:28 103 H 96 09/05/20 16:23 107 H 98 0321 16:18 104 H 97 21 16:13 113 H 98 0321 16:08 110 H 97 03 16:03 102 H 97 03/21 16:01 117 H 94 09/05/20 15:58 121 H 99 09/05/20 15:53 104 H 97 09/05/20 15:48 113 H 98 09/05/20 15:47 109 H 122/83 09/05/20 15:43 108 H 97 09/05/20 15:38 118 H 97 09/05/20 15:33 104 H 97 09/05/20 15:28 102 H 97 09/05/20 15:23 107 H 97 09/05/20 15:18 112 H 98 09/05/20 15:13 110 H 97 09/05/20 15:08 106 H 97 09/05/20 15:07 98.3 F 108 H 16 130/82 09/05/20 15:06 106 H 130/82 09/05/20 15:03 102 H 97 09/05/20 14:58 107 H 96 09/05/20 14:53 99 H 97 09/05/20 14:48 114 H 98 09/05/20 14:47 107 H 122/80 09/05/20 14:43 104 H 97 09/05/20 14:38 109 H 97 09/05/20 14:33 103 H 97 09/05/20 14:28 111 H 97 09/05/20 14:23 98 H 98 09/05/20 14:18 89 97 09/05/20 14:13 91 H 96 09/05/20 14:08 90 97 09/05/20 14:03 95 H 97 09/05/20 13:58 94 H 97 09/05/20 13:53 94 H 97 09/05/20 13:48 91 H 97 09/05/20 13:47 89 119/71 09/05/20 13:43 93 H 97 09/05/20 13:38 95 H 97 09/05/20 13:33 104 H 97 09/05/20 13:28 94 H 97 09/05/20 13:23 97 H 96 09/05/20 13:18 91 H 97 09/05/20 13:13 88 97 09/05/20 13:08 95 H 96 09/05/20 13:03 93 H 96 09/05/20 12:58 93 H 97 09/05/20 12:53 97 H 97 09/05/20 12:48 109 H 98 09/05/20 12:47 91 H 118/69 09/05/20 12:43 96 H 97 09/05/20 12:38 101 H 97 09/05/20 12:33 89 98 09/05/20 12:28 95 H 97 09/05/20 12:23 102 H 96 09/05/20 12:18 96 H 98 09/05/20 12:17 98.1 F 94 H 16 118/73 118/73 09/05/20 12:13 95 H 97 09/05/20 12:08 99 H 97 09/05/20 12:03 102 H 97 09/05/20 11:59 104 H 94 09/05/20 11:58 108 H 97 09/05/20 11:53 106 H 97 09/05/20 11:48 111 H 97 09/05/20 11:47 102 H 124/69 09/05/20 11:43 110 H 96 09/05/20 11:38 115 H 97 09/05/20 11:33 102 H 96 09/05/20 11:28 102 H 96 09/05/20 11:23 104 H 96 09/05/20 11:18 104 H 96 09/05/20 11:13 101 H 96 09/05/20 11:08 101 H 96 09/05/20 11:03 101 H 95 09/05/20 10:58 104 H 95 09/05/20 10:53 109 H 96 09/05/20 10:48 105 H 96 09/05/20 10:47 102 H 117/65 09/05/20 10:43 116 H 98 09/05/20 10:38 111 H 96 09/05/20 10:33 121 H 96 09/05/20 10:28 119 H 97 09/05/20 10:23 118 H 96 09/05/20 10:18 117 H 96 09/05/20 10:13 121 H 96 09/05/20 10:11 154/86 09/05/20 10:10 98.2 F 09/05/20 10:08 121 H 96 09/05/20 10:03 119 H 97 09/05/20 09:58 137 H 97 09/05/20 09:53 115 H 98 09/05/20 09:48 120 H 96 09/05/20 09:47 115 H 154/86 09/05/20 09:43 127 H 97 09/05/20 09:38 115 H 98 09/05/20 09:33 120 H 98 09/05/20 09:28 102 H 97 09/05/20 09:23 94 H 97 09/05/20 09:18 94 H 97 09/05/20 09:13 94 H 97 09/05/20 09:08 101 H 97 09/05/20 09:03 103 H 97 09/05/20 08:58 109 H 98 09/05/20 08:53 105 H 98 09/05/20 08:48 100 H 98 09/05/20 08:47 93 H 125/77 09/05/20 08:43 95 H 98 09/05/20 08:38 97 H 98 09/05/20 08:33 97 H 98 09/05/20 08:28 105 H 98 09/05/20 08:23 107 H 98 09/05/20 08:18 107 H 99 09/05/20 08:13 104 H 99 09/05/20 08:08 96 H 98 09/05/20 08:03 92 H 98 09/05/20 07:58 88 98 09/05/20 07:53 113 H 99 09/05/20 07:48 98 H 98 09/05/20 07:47 90 124/78 09/05/20 07:43 91 H 98 09/05/20 07:38 99 H 99 09/05/20 07:33 92 H 98 09/05/20 07:28 99 H 98 09/05/20 07:23 96 H 98 09/05/20 07:18 97 H 98 09/05/20 07:13 93 H 98 09/05/20 07:08 91 H 99 09/05/20 07:03 103 H 98 09/05/20 06:58 96 H 98 09/05/20 06:53 94 H 98 09/05/20 06:48 93 H 98 09/05/20 06:47 86 137/81 09/05/20 06:43 90 98 09/05/20 06:38 89 98 09/05/20 06:33 92 H 98 09/05/20 06:28 90 99 Intake and Output 09/05/20 09/05/20 09/06/20 15:59 23:59 07:59 Intake Total 1000 1000 Output Total 1950 1900 800 Balance -950 -900 -800 Intake: IV 1000 1000 Lactated Ringers 1,000 ml 1000 @ 125 mls/hr IV DIRECT EMMANUEL Rx#:[id number] MAGNESIUM SULFATE 40GM/ 1000 1000ML 40 gm In 1,000 ml @ 2 GM/HR 50 mls/hr IV DIRECT EMMANUEL Rx#:[id number] Output: Urine 1950 1900 800 Indwelling Catheter 1350 1900 800 Void 600 Other: Total, Output Amount 950 350 500 - Exam Cardiovascular: Present: Regular rate, No murmurs Lungs: Present: Clear to auscultation Abdomen: Present: normal appearance, soft. Absent: distention, tenderness, guarding, rigidity Uterus: Present: normal, firm, fundal height below umbilicus. Absent: bogginess, tenderness Extremities: Present: edema (bilateral pedal edema). Absent: tenderness - Labs Labs: Abnormal lab results 09/05/20 09/05/20 09/05/20 Range/Units 07:04 07:04 14:20 WBC 12.9 H (4.5-11.0) K/mm3 RBC 3.11 L (3.65-5.03) M/mm3 Hct 29.9 L (30.3-42.9) % MCH 33 H (28-32) pg MCHC 35 H (30-34) % Creatinine 0.4 L (0.6-1.2) mg/dL Magnesium 5.60 H (1.7-2.3) mg/dL AST 58 H (5-40) units/L Lactate Dehydrogenase 214 H (91-180) units/L 09/05/20 09/06/20 Range/Units 17:58 00:12 WBC (4.5-11.0) K/mm3 RBC (3.65-5.03) M/mm3 Hct (30.3-42.9) % MCH (28-32) pg MCHC (30-34) % Creatinine (0.6-1.2) mg/dL Magnesium 5.70 H 5.90 H (1.7-2.3) mg/dL AST (5-40) units/L Lactate Dehydrogenase (91-180) units/L
[2020-09-06] MEDS: IBUPROFEN 600 MG TAB PO SCH ×4 (07:01→22:18)
[2020-09-06 07:35] LABS: Basophils # (Auto) 0.1 K/mm3 (0.0-0.1); Basophils % (Auto) 0.6 % (0.0-1.8); Eosinophils # (Auto) 0.2 K/mm3 (0.0-0.4); Eosinophils % (Auto) 1.2 % (0.0-4.3); Hematocrit 30.3 % (30.3-42.9); Hemoglobin 10.4 gm/dl (10.1-14.3); Lymphocytes # (Auto) 1.4 K/mm3 (1.2-5.4); Lymphocytes % (Auto) 10.9 % (13.4-35.0); Mean Corpuscular HGB Conc 34 % (30-34); Mean Corpuscular Volume 97 fl (79-97); Monocytes # (Auto) 0.9 K/mm3 (0.0-0.8); Monocytes % (Auto) 6.9 % (0.0-7.3); Platelet Count 222 K/mm3 (140-440); Red Blood Count 3.14 M/mm3 (3.65-5.03); Red Cell Distribution Width 15.5 % (13.2-15.2)
[2020-09-06 07:48] LABS: Alanine Aminotransferase 55 units/L (7-56); Albumin 3.2 g/dL (3.9-5); Blood Urea Nitrogen 7 mg/dL (7-17); Calcium 6.8 mg/dL (8.4-10.2); Hemolysis Index 0
[2020-09-06 07:51] LABS: BUN/Creatinine Ratio 14
[2020-09-06] MEDS: PRENATAL VIT27-FE FUMARATE-FOLIC ACID VIT TAB PO SCH (10:02)
[2020-09-06] MEDS: FERROUS SULFATE 325 MG TAB PO SCH ×3 (10:02→20:57)
--- NOTE | 2020-09-06 16:12 | Event Note ---
Date: 09/06/20 Nurse called me stating pt wants to leave AMA to go and take care of business at home. BP not controlled and same repeated and still elevated. Pt had not received her 9am med and later LFTs seen remain elevated. I adjusted labetalol upwards to 300mg bid and pt to remain in hospital. pt agreed to stay.
[2020-09-07] MEDS: IBUPROFEN 600 MG TAB PO SCH ×4 (04:45→23:30)
--- NOTE | 2020-09-07 08:24 | Progress Note ---
Assessment and Plan PPD# 6 with preeclampsia, uncontrolled BP; s/p MgS04 course x24hr twice since delivery 1. Continue adjustment upwards of meds, Labetalol increased this morning to 400mg bid 2. Await CMP results for this am 3. PIH precaution and pt told when she his discharged, she will need to return to clinic for BP check in 1wk 4. Consider discharge home later this pm or tomorrow if BP normal and stable All questions encouraged and answered and pt encouraged to be compliant Subjective Date of service: 09/07/20 Principal diagnosis: day 6 S/P with preeclampsia; BP uncontrolled Interval history: Pt denies headache and wants to go home. pt has mother to bedside. pt believes her BP was elevated because she was kept here however her labs showed persistent elevated LFT's yesterday. Pt is breast and bottle feeding. Vag bleeding minimal. Pt has been compliant with taking her meds here for elevated BP. Objective - Constitutional Vitals: Vital Signs - 12hr 09/06/20 09/07/20 09/07/20 20:58 00:45 05:13 Temperature 98.4 F 98.1 F Pulse Rate 72 84 86 Respiratory 18 18 Rate Blood Pressure 159/96 145/82 153/98 O2 Sat by Pulse 98 97 Oximetry 09/07/20 06:43 Temperature Pulse Rate 82 Respiratory Rate Blood Pressure 153/92 O2 Sat by Pulse Oximetry General appearance: Present: no acute distress - Breasts Breasts: normal - Cardiovascular Rhythm: regular Extremities: No edema - Gastrointestinal General gastrointestinal: Present: soft, non-tender - Genitourinary Female genitourinary: other (Fundus firm and non-tender, 3cm below the umbilicus) - Labs CBC & Chem 7: 09/06/20 07:03 09/06/20 07:03 Medications & Allergies - Medications Allergies/Adverse Reactions: Allergies No Known Allergies Allergy (Unverified 08/31/20 18:16) Home Medications: Home Medications Medication Instructions Recorded Confirmed Last Taken Type Pnv Plus Multivit Tab 1 tab PO DAILY 09/01/20 09/01/20 08/30/20 History Active Medications: Generic Name Dose Route Start Last Admin Trade Name Freq PRN Reason Stop Dose Admin Benzocaine/Menthol 1 spray 09/02/20 17:41 09/02/20 18:16 Benzocaine/Menthol 20/0.5% Top [place] 56 Gm TP 1 spray TID PRN Administration Pain, Mild (1-3) Ferrous Sulfate 325 mg 09/02/20 14:00 09/06/20 20:57 Ferrous Sulfate 325 Mg Tab PO 325 mg TID EMMANUEL Administration Lactated Ringer's 1,000 mls @ 125 mls/hr 08/31/20 18:00 09/05/20 18:58 Lactated Ringers IV 125 mls/hr DIRECT EMMANUEL Administration Magnesium Sulfate 40 gm in 1,000 mls @ 50 mls/hr 09/05/20 03:00 09/05/20 23:43 Magnesium Sulfate 40gm/1000ml IV 2 gm/hr DIRECT EMMANUEL 50 mls/hr Administration 2 GM/HR Ibuprofen 600 mg 09/01/20 17:00 09/07/20 04:45 Ibuprofen 600 Mg Tab PO 600 mg Q6H EMMANUEL Administration Labetalol HCl 400 mg 09/07/20 06:36 09/07/20 06:43 Labetalol 200 Mg Tab PO 400 mg BID EMMANUEL Administration Multi-Ingredient Ointment 1 applic 09/01/20 16:43 Lanolin/Zinc/Dimethicone (Lansinoh) 7 Gm TP PRN PRN Sore Nipples Multivitamins/Iron/Calcium 1 each 09/02/20 13:00 09/06/20 10:02 [id number] Fumarate-Folic Acid Vit Tab PO 1 each DAILY EMMANUEL Administration Promethazine HCl 25 mg 09/01/20 16:43 Promethazine 25 Mg Tab PO Q6H PRN Nausea And Vomiting Witch Savana/Glycerin 1 each 09/01/20 16:43 09/02/20 17:40 Witch Savana/ Glycerin Pad TP 1 each PRN PRN Administration Hemorrhoid/cleansing/soothing
[2020-09-07 08:27] LABS: Alanine Aminotransferase 56 units/L (7-56); Albumin 3.4 g/dL (3.9-5); Blood Urea Nitrogen 11 mg/dL (7-17); Hemolysis Index 1
[2020-09-07 08:29] LABS: BUN/Creatinine Ratio 22
[2020-09-07] MEDS: FERROUS SULFATE 325 MG TAB PO SCH ×3 (09:47→20:46)
[2020-09-07] MEDS: PRENATAL VIT27-FE FUMARATE-FOLIC ACID VIT TAB PO SCH (09:47)
[2020-09-07] MEDS ORDERED: amLODIPine 5 MG TAB PO SCH ×4 (10:00→21:00)
[2020-09-07] MEDS ORDERED: hydrALAZINE 20 MG/1 ML INJ IV ONE (17:55)
--- NOTE | 2020-09-07 18:04 | Event Note ---
Date: 09/07/20 Nurse called and reported BP of 170s/117. Patient is on Labetalol 400 mg po BID and Norvasc 5 mg po daily. IV hydralazine ordered. Consulted with Dr. Ortiz re: this patient. Dr. Ortiz recommended hospitalist consult. Hospitalist consult put in. Informed patient's nurse of the above.
--- NOTE | 2020-09-07 20:28 | Consultation ---
History of Present Illness - Reason for Consult Consult date: 09/07/20 Medical management Requesting physician: BRE ROGERS - History of Present Illness History of present illness: 19 year old presents to L&D with complaint of vaginal spotting and contractions since this morning. Patient reports vaginal spotting was seen only with wiping and did not require use of a pad. Patient denies leaking of fluid. Patient reports active movement. Patient denies falls. Patient received care at [facility] and she brings records with her. LMP 12/02/2019. EDC 09/07/2020. significant for the following: low lying placenta (no ultrasound on chart to indicate whether this had resolved), BPD <10th percentile. labs are as follows: A+, antibody screen negative, rubella immune, hepatitis B surface antigen negative, HIV negative, RPR nonreactive, gonorrhea negative, chlamydia negative, AFP negative, 1 hour sugar test 85, GBS negative. Was asked to manage the patient's high blood pressure Patient is on amlodipine 5 mg once a day Blood pressure readings were reviewed and they range from 117/71 initially to 173/114 today. Patient initiated on amlodipine 5 mg once a day the latest blood pressure is 156/84. Patient is asymptomatic. Past History Past Medical History: hypertension Past Surgical History: Other Social history: lives with family, full code. denies: smoking, alcohol abuse, prescription drug abuse, IV drug use Family history: hypertension Medications and Allergies Allergies Allergy/AdvReac Type Severity Reaction Status Date / Time No Known Allergies Allergy Unverified 08/31/20 18:16 Home Medications Medication Instructions Recorded Confirmed Last Taken Type Pnv Plus Multivit Tab 1 tab PO DAILY 09/01/20 09/01/20 08/30/20 History Active Meds: Active Medications Amlodipine Besylate (Amlodipine 5 Mg Tab) 10 mg PO QDAY [facility] Benzocaine/Menthol (Benzocaine/Menthol 20/0.5% Top [place] 56 Gm) 1 spray TP TID PRN PRN Reason: Pain, Mild (1-3) Last Admin: 09/02/20 18:16 Dose: 1 spray Documented by: Ferrous Sulfate (Ferrous Sulfate 325 Mg Tab) 325 mg PO TID [facility] Last Admin: 09/07/20 16:11 Dose: 325 mg Documented by: Lactated Ringer's (Lactated Ringers) 1,000 mls @ 125 mls/hr IV DIRECT EMMANUEL Last Admin: 09/05/20 18:58 Dose: 125 mls/hr Documented by: Magnesium Sulfate (Magnesium Sulfate 40gm/1000ml) 40 gm in 1,000 mls @ 50 mls/hr IV DIRECT [facility] Last Admin: 09/05/20 23:43 Dose: 2 gm/hr, 50 mls/hr Documented by: Ibuprofen (Ibuprofen 600 Mg Tab) 600 mg PO Q6H [facility] Last Admin: 09/07/20 16:11 Dose: 600 mg Documented by: Labetalol HCl (Labetalol 200 Mg Tab) 400 mg PO BID [facility] Last Admin: 09/07/20 10:11 Dose: Not Given Documented by: Multi-Ingredient Ointment (Lanolin/Zinc/Dimethicone (Lansinoh) 7 Gm) 1 applic TP PRN PRN PRN Reason: Sore Nipples Multivitamins/Iron/Calcium ( Qle28-Ls Fumarate-Folic Acid Vit Tab) 1 each PO DAILY [facility] Last Admin: 09/07/20 09:47 Dose: 1 each Documented by: Promethazine HCl (Promethazine 25 Mg Tab) 25 mg PO Q6H PRN PRN Reason: Nausea And Vomiting Witch Savana/Glycerin (Witch Savana/ Glycerin Pad) 1 each TP PRN PRN PRN Reason: Hemorrhoid/cleansing/soothing Last Admin: 09/02/20 17:40 Dose: 1 each Documented by: Review of Systems All systems: negative Exam - Constitutional Vitals: Temp Pulse Resp BP Pulse Ox 99.0 F 68 18 140/78 98 09/07/20 19:56 09/07/20 19:56 09/07/20 19:56 09/07/20 19:56 09/07/20 17:19 General appearance: Present: no acute distress, well-nourished - EENT Eyes: Present: PERRL ENT: hearing intact, clear oral mucosa - Neck Neck: Present: supple, normal ROM - Respiratory Respiratory effort: normal Respiratory: bilateral: CTA - Cardiovascular Heart rate: 78 Rhythm: regular Heart Sounds: Present: S1 & S2. Absent: rub, click - Extremities Extremities: pulses symmetrical, No edema Peripheral Pulses: within normal limits - Abdominal General gastrointestinal: Present: soft, non-tender, non-distended, normal bowel sounds Female genitourinary: Present: normal - Integumentary Integumentary: Present: clear, warm, dry - Musculoskeletal Musculoskeletal: gait normal, strength equal bilaterally - Psychiatric Psychiatric: appropriate mood/affect, intact judgment & insight - Neurologic Neurologic: CNII-XII intact, moves all extremities Results - Labs CBC & Chem 7: 09/06/20 07:03 09/07/20 07:29 Labs: Abnormal lab results 09/07/20 Range/Units 07:29 Chloride 107.8 H (98-107) mmol/L Carbon Dioxide 20 L (22-30) mmol/L Creatinine 0.5 L (0.6-1.2) mg/dL Glucose 101 H (65-100) mg/dL Albumin 3.4 L (3.9-5) g/dL Assessment and Plan - Patient Problems (1) Hypertension Current Visit: Yes Status: Chronic Qualifiers: Hypertension type: essential hypertension Qualified Code(s): I10 - Essential (primary) hypertension Plan to address problem: Patient initiated on amlodipine 5 mg once a day Amlodipine increased to 10 mg once a day We will adjust her medications as necessary We will follow the patient. If needed will add labetalol 200 twice daily When stable patient can be discharged on amlodipine 10 mg once a day and follow- up with the primary care physician (2) PPH ( hemorrhage) Current Visit: Yes Status: Acute Qualifiers: hemorrhage type: unspecified Qualified Code(s): O72.1 - Other immediate hemorrhage Plan to address problem: Defer to [employer] Thank you for the consult We will follow the patient
[2020-09-08] MEDS: FERROUS SULFATE 325 MG TAB PO SCH ×3 (08:45→20:15)
[2020-09-08] MEDS ORDERED: hydrALAZINE 25 MG TAB PO SCH (09:00)
[2020-09-08] MEDS: amLODIPine 10 MG TAB PO SCH (09:47)
--- NOTE | 2020-09-08 09:50 | Progress Note ---
Assessment and Plan PPD # 7 A: S/P with uncontrolled b/p p: Continue routine pp care B/P mtg by IM Renal US ordered by Dr Quintanilla Possible d/c home when d/cd from IM services - Patient Problems (1) (normal spontaneous vaginal delivery) Current Visit: Yes Status: Acute (2) PPH ( hemorrhage) Current Visit: Yes Status: Acute Qualifiers: hemorrhage type: unspecified Qualified Code(s): O72.1 - Other immediate hemorrhage Subjective - Subjective Principal diagnosis: day 6 S/P with preeclampsia; BP uncontrolled Patient reports: appetite normal, voiding normally, pain well controlled, ambulating normally, other (pt denies bartholomew, visual problems, or epigastric pain) [place]: doing well, bottle feeding Objective - Vital Signs Latest vital signs: Vital Signs Temp Pulse Resp BP BP BP Pulse Ox 09/08/20 09:47 84 161/108 09/08/20 09:45 84 161/108 09/08/20 09:25 97.9 F 84 18 161/108 97 09/08/20 03:42 98.9 F 78 18 150/90 09/07/20 23:31 98.7 F 80 20 142/84 09/07/20 22:42 144/78 09/07/20 22:12 160/96 09/07/20 21:59 160/96 09/07/20 21:04 140/78 09/07/20 19:56 99.0 F 68 18 140/78 09/07/20 18:55 80 156/84 09/07/20 18:29 86 166/98 09/07/20 18:00 86 166/98 09/07/20 17:42 84 173/114 09/07/20 17:39 94 H 170/117 09/07/20 17:19 97.9 F 85 18 164/115 98 09/07/20 12:10 98.3 F 18 150/89 Intake and Output 09/07/20 09/08/20 09/08/20 22:59 06:59 14:59 Other: # Voids Void 1 1 - Exam Breasts: Present: normal Abdomen: Present: normal appearance, soft, normal bowel sounds Vulva: both: normal Uterus: Present: normal, firm, fundal height below umbilicus Extremities: Present: normal
--- NOTE | 2020-09-08 09:58 | Event Note ---
Date: 09/08/20 B/P 161/108 X 2; pt denies bartholomew, visual problems, or epigastric pain. Dr Manuel added Hydralazine 50mg po now and q8.
[2020-09-08] MEDS: hydrALAZINE 25 MG TAB PO SCH ×3 (10:44→22:09)
--- NOTE | 2020-09-08 11:21 | Ultrasound Report ---
ULTRASOUND RENAL INDICATION / CLINICAL INFORMATION: elevated BP refractory to medication. COMPARISON: None available. FINDINGS: RIGHT KIDNEY: Length = 10.7 cm. - Echogenicity: Normal. - Cortical Thickness: Normal. - Hydronephrosis: Mild. - Cyst or mass: No significant abnormality. - Stones: None seen. LEFT KIDNEY: Length = 11.8 cm. - Echogenicity: Normal. - Cortical Thickness: Normal. - Hydronephrosis: None. - Cyst or mass: No significant abnormality. - Stones: None seen. URINARY BLADDER: No significant abnormality. FREE FLUID: None. ADDITIONAL FINDINGS: None. IMPRESSION: 1. Suspected mild right-sided hydronephrosis. No nephrolithiasis. Signer Name: Vladislav Jensen MD Signed: 09/08/2020 11:17 AM Workstation Name: [id number]
[2020-09-08] MEDS: IBUPROFEN 600 MG TAB PO SCH ×2 (12:25→12:33)
--- NOTE | 2020-09-08 14:03 | Progress Note ---
Assessment and Plan Assessment and plan: Her BP was about 160's/110 this AM. Added hydralazine PO to her regimen Will continue amlodipine, hydralazine and labetalol Will monitor BP today. History Interval history: Consult for HTN Patient seen and examined at bedside. Has no complaints. On labetalol, hydralazine and amlodipine. Hospitalist Physical - Constitutional Vitals: Temp Pulse Resp BP Pulse Ox 98.8 F 104 H 17 126/85 97 09/08/20 12:08 09/08/20 12:08 09/08/20 12:08 09/08/20 12:08 09/08/20 12:08 General appearance: Present: no acute distress - EENT Eyes: Present: PERRL - Neck Neck: Present: supple, normal ROM - Respiratory Respiratory: bilateral: CTA - Cardiovascular Heart Sounds: Present: S1 & S2 - Abdominal General gastrointestinal: soft - Psychiatric Psychiatric: appropriate mood/affect - Neurologic Neurologic: CNII-XII intact Results - Labs CBC & Chem 7: 09/06/20 07:03 09/07/20 07:29 Labs: Laboratory Last Values WBC 12.5 K/mm3 (4.5-11.0) H 09/06/20 07:03 RBC 3.14 M/mm3 (3.65-5.03) L 09/06/20 07:03 Hgb 10.4 gm/dl (10.1-14.3) 09/06/20 07:03 Hct 30.3 % (30.3-42.9) 09/06/20 07:03 MCV 97 fl (79-97) 09/06/20 07:03 MCH 33 pg (28-32) H 09/06/20 07:03 MCHC 34 % (30-34) 09/06/20 07:03 RDW 15.5 % (13.2-15.2) H 09/06/20 07:03 Plt Count 222 K/mm3 (140-440) 09/06/20 07:03 Lymph % (Auto) 10.9 % (13.4-35.0) L 09/06/20 07:03 [place] % (Auto) 6.9 % (0.0-7.3) 09/06/20 07:03 Eos % (Auto) 1.2 % (0.0-4.3) 09/06/20 07:03 Baso % (Auto) 0.6 % (0.0-1.8) 09/06/20 07:03 Lymph # (Auto) 1.4 K/mm3 (1.2-5.4) 09/06/20 07:03 [place] # (Auto) 0.9 K/mm3 (0.0-0.8) H 09/06/20 07:03 Eos # (Auto) 0.2 K/mm3 (0.0-0.4) 09/06/20 07:03 Baso # (Auto) 0.1 K/mm3 (0.0-0.1) 09/06/20 07:03 Seg Neutrophils % 80.4 % (40.0-70.0) H 09/06/20 07:03 Seg Neutrophils # 10.0 K/mm3 (1.8-7.7) H 09/06/20 07:03 ABG pH 6.964 (7.320-7.450) L 09/01/20 16:45 POC ABG pCO2 69.8 mmHg (32.0-48.0) H 09/01/20 16:45 POC ABG pO2 13.5 mmHg (83-108) L 09/01/20 16:45 POC ABG HCO3 15.5 09/01/20 16:45 ABG O2 Saturation < 15 (0-100) 09/01/20 16:45 POC ABG Base Excess -17.4 09/01/20 16:45 ABG Hemoglobin 14.8 (12.0-17.5) 09/01/20 16:45 ABG Oxyhemoglobin 11.6 (94-98) L 09/01/20 16:45 ABG Methemoglobin 1.4 (0.0-1.5) 09/01/20 16:45 ABG Sodium 132.3 mmol/L (136.0-145.0) L 09/01/20 16:45 ABG Potassium 4.5 mmol/L (3.40-4.50) 09/01/20 16:45 ABG Chloride 99.0 mmol/L (98-107) 09/01/20 16:45 ABG Glucose 110 mg/dL (65-95) H 09/01/20 16:45 Carboxyhemoglobin 0.4 (0.5-1.5) L 09/01/20 16:45 FiO2 % 21 09/01/20 16:45 Sodium 140 mmol/L (137-145) 09/07/20 07:29 Potassium 4.2 mmol/L (3.6-5.0) 09/07/20 07:29 Chloride 107.8 mmol/L (98-107) H 09/07/20 07:29 Carbon Dioxide 20 mmol/L (22-30) L 09/07/20 07:29 Anion Gap 16 mmol/L 09/07/20 07:29 BUN 11 mg/dL (7-17) 09/07/20 07:29 Creatinine 0.5 mg/dL (0.6-1.2) L 09/07/20 07:29 Estimated GFR > 60 ml/min 09/07/20 07:29 BUN/Creatinine Ratio 22 % 09/07/20 07:29 Glucose 101 mg/dL (65-100) H 09/07/20 07:29 Uric Acid 4.9 mg/dL (3.5-7.6) 09/05/20 07:04 Calcium 9.0 mg/dL (8.4-10.2) D 09/07/20 07:29 Magnesium 5.90 mg/dL (1.7-2.3) H 09/06/20 00:12 Total Bilirubin 0.40 mg/dL (0.1-1.2) 09/07/20 07:29 AST 36 units/L (5-40) 09/07/20 07:29 ALT 56 units/L (7-56) 09/07/20 07:29 Alkaline Phosphatase 114 units/L (35-129) 09/07/20 07:29 Lactate Dehydrogenase 214 units/L (91-180) H 09/05/20 07:04 Total Protein 6.7 g/dL (6.3-8.2) 09/07/20 07:29 Albumin 3.4 g/dL (3.9-5) L 09/07/20 07:29 Albumin/Globulin Ratio 1.0 % 09/07/20 07:29 Arterial Blood Glucose 110 mg/dL (65-95) H 09/01/20 16:45 Arterial Blood Ionized Calcium 5.5 mg/dL (4.6-5.3) H 09/01/20 16:45 Urine Color Straw (Yellow) 09/05/20 02:57 Urine Turbidity Clear (Clear) 09/05/20 02:57 Urine pH 7.0 (5.0-7.0) 09/05/20 02:57 Ur Specific [place] 1.006 (1.003-1.030) 09/05/20 02:57 Urine Protein <15 mg/dl mg/dL (Negative) 09/05/20 02:57 Urine Glucose (UA) Negative mg/dL (Negative) 09/05/20 02:57 Urine Ketones Negative mg/dL (Negative) 09/05/20 02:57 Urine Blood Negative (Negative) 09/05/20 02:57 Urine Nitrite Negative (Negative) 09/05/20 02:57 Ur Reducing Substances Not Reportable 08/31/20 19:30 Urine Bilirubin Negative (Negative) 09/05/20 02:57 Urine Ictotest Not Reportable 08/31/20 19:30 Urine Urobilinogen < 2.0 mg/dL (<2.0) 09/05/20 02:57 Ur Leukocyte Esterase Negative (Negative) 09/05/20 02:57 Urine WBC (Auto) 1.0 /HPF (0.0-6.0) 09/05/20 02:57 Urine RBC (Auto) 1.0 /HPF (0.0-6.0) 09/05/20 02:57 U Epithel Cells (Auto) < 1.0 /HPF (0-13.0) 08/31/20 19:30 Urine Mucus Few /HPF 08/31/20 19:30 Urine Yeast (Budding) Few /HPF 08/31/20 19:30 Urine Opiates Screen Negative 08/31/20 19:30 Urine Methadone Screen Negative 08/31/20 19:30 Ur Barbiturates Screen Negative 08/31/20 19:30 Ur Phencyclidine Scrn Negative 08/31/20 19:30 Ur Amphetamines Screen Negative 08/31/20 19:30 U Benzodiazepines Scrn Negative 08/31/20 19:30 Urine Cocaine Screen Negative 08/31/20 19:30 U Marijuana (THC) Screen Negative 08/31/20 19:30 Drugs of Abuse Note Disclamer 08/31/20 19:30 Syphilis IgG Antibody Nonreactive (NonReactive) 08/31/20 18:30 Coronavirus (PCR) Negative (Negative) 09/01/20 08:55 Blood Type A POSITIVE 08/31/20 18:30 Antibody Screen Negative 08/31/20 18:30 Crossmatch See Detail 08/31/20 18:30 Active Medications - Current Medications Current Medications: Generic Name Dose Route Start Last Admin Trade Name Freq PRN Reason Stop Dose Admin Amlodipine Besylate 10 mg 09/08/20 10:00 09/08/20 09:47 Amlodipine 10 Mg Tab PO 10 mg DAILY EMMANUEL Administration Benzocaine/Menthol 1 spray 09/02/20 17:41 09/02/20 18:16 Benzocaine/Menthol 20/0.5% [place] 56 Gm TP 1 spray TID PRN Administration Pain, Mild (1-3) Ferrous Sulfate 325 mg 09/02/20 14:00 09/08/20 08:45 Ferrous Sulfate 325 Mg Tab PO 325 mg TID EMMANUEL Administration Hydralazine HCl 50 mg 09/08/20 10:00 09/08/20 10:44 Hydralazine 25 Mg Tab PO 50 mg Q8HR EMMANUEL Administration Lactated Ringer's 1,000 mls @ 125 mls/hr 08/31/20 18:00 09/05/20 18:58 Lactated Ringers IV 125 mls/hr DIRECT EMMANUEL Administration Magnesium Sulfate 40 gm in 1,000 mls @ 50 mls/hr 09/05/20 03:00 09/05/20 23:43 Magnesium Sulfate 40gm/1000ml IV 2 gm/hr DIRECT EMMANUEL 50 mls/hr Administration 2 GM/HR Ibuprofen 600 mg 09/01/20 17:00 09/08/20 12:33 Ibuprofen 600 Mg Tab PO 600 mg Q6H EMMANUEL Administration Labetalol HCl 400 mg 09/07/20 06:36 09/08/20 09:45 Labetalol 200 Mg Tab PO 400 mg BID EMMANUEL Administration Multi-Ingredient Ointment 1 applic 09/01/20 16:43 Lanolin/Zinc/Dimethicone (Lansinoh) 7 Gm TP PRN PRN Sore [place]ipp[place] Multivitamins/Iron/Calcium 1 each 09/02/20 13:00 09/07/20 09:47 [id number] Fumarate-Folic Acid Vit Tab PO 1 each DAILY EMMANUEL Administration Promethazine HCl 25 mg 09/01/20 16:43 Promethazine 25 Mg Tab PO Q6H PRN Nausea And Vomiting Witch Savana/Glycerin 1 each 09/01/20 16:43 09/02/20 17:40 Witch Savana/ Glycerin Pad TP 1 each PRN PRN Administration Hemorrhoid/cleansing/soothing
[2020-09-09] MEDS: hydrALAZINE 25 MG TAB PO SCH (07:45)
--- NOTE | 2020-09-09 08:08 | Progress Note ---
Assessment and Plan Assessment and plan: BP has improved Can discharge home on current medications Needs to follow up with primary care physician in 1-2 weeks for BP monitoring. Will sign off History Interval history: Consult for HTN Patient seen and examined at bedside. Has no complaints. On labetalol, hydralazine and amlodipine. Her BP has improved. Hospitalist Physical - Constitutional Vitals: Temp Pulse Resp BP Pulse Ox 98.0 F 78 18 126/74 98 09/09/20 00:00 09/09/20 07:45 09/09/20 00:00 09/09/20 07:45 09/08/20 20:35 General appearance: Present: no acute distress - EENT Eyes: Present: PERRL - Neck Neck: Present: supple - Respiratory Respiratory: bilateral: CTA - Cardiovascular Rhythm: regular Heart Sounds: Present: S1 & S2 - Abdominal General gastrointestinal: soft - Psychiatric Psychiatric: appropriate mood/affect - Neurologic Neurologic: CNII-XII intact Results - Labs CBC & Chem 7: 09/06/20 07:03 09/07/20 07:29 Labs: Laboratory Last Values WBC 12.5 K/mm3 (4.5-11.0) H 09/06/20 07:03 RBC 3.14 M/mm3 (3.65-5.03) L 09/06/20 07:03 Hgb 10.4 gm/dl (10.1-14.3) 09/06/20 07:03 Hct 30.3 % (30.3-42.9) 09/06/20 07:03 MCV 97 fl (79-97) 09/06/20 07:03 MCH 33 pg (28-32) H 09/06/20 07:03 MCHC 34 % (30-34) 09/06/20 07:03 RDW 15.5 % (13.2-15.2) H 09/06/20 07:03 Plt Count 222 K/mm3 (140-440) 09/06/20 07:03 Lymph % (Auto) 10.9 % (13.4-35.0) L 09/06/20 07:03 [place] % (Auto) 6.9 % (0.0-7.3) 09/06/20 07:03 Eos % (Auto) 1.2 % (0.0-4.3) 09/06/20 07:03 Baso % (Auto) 0.6 % (0.0-1.8) 09/06/20 07:03 Lymph # (Auto) 1.4 K/mm3 (1.2-5.4) 09/06/20 07:03 [place] # (Auto) 0.9 K/mm3 (0.0-0.8) H 09/06/20 07:03 Eos # (Auto) 0.2 K/mm3 (0.0-0.4) 09/06/20 07:03 Baso # (Auto) 0.1 K/mm3 (0.0-0.1) 09/06/20 07:03 Seg Neutrophils % 80.4 % (40.0-70.0) H 09/06/20 07:03 Seg Neutrophils # 10.0 K/mm3 (1.8-7.7) H 09/06/20 07:03 ABG pH 6.964 (7.320-7.450) L 09/01/20 16:45 POC ABG pCO2 69.8 mmHg (32.0-48.0) H 09/01/20 16:45 POC ABG pO2 13.5 mmHg (83-108) L 09/01/20 16:45 POC ABG HCO3 15.5 09/01/20 16:45 ABG O2 Saturation < 15 (0-100) 09/01/20 16:45 POC ABG Base Excess -17.4 09/01/20 16:45 ABG Hemoglobin 14.8 (12.0-17.5) 09/01/20 16:45 ABG Oxyhemoglobin 11.6 (94-98) L 09/01/20 16:45 ABG Methemoglobin 1.4 (0.0-1.5) 09/01/20 16:45 ABG Sodium 132.3 mmol/L (136.0-145.0) L 09/01/20 16:45 ABG Potassium 4.5 mmol/L (3.40-4.50) 09/01/20 16:45 ABG Chloride 99.0 mmol/L (98-107) 09/01/20 16:45 ABG Glucose 110 mg/dL (65-95) H 09/01/20 16:45 Carboxyhemoglobin 0.4 (0.5-1.5) L 09/01/20 16:45 FiO2 % 21 09/01/20 16:45 Sodium 140 mmol/L (137-145) 09/07/20 07:29 Potassium 4.2 mmol/L (3.6-5.0) 09/07/20 07:29 Chloride 107.8 mmol/L (98-107) H 09/07/20 07:29 Carbon Dioxide 20 mmol/L (22-30) L 09/07/20 07:29 Anion Gap 16 mmol/L 09/07/20 07:29 BUN 11 mg/dL (7-17) 09/07/20 07:29 Creatinine 0.5 mg/dL (0.6-1.2) L 09/07/20 07:29 Estimated GFR > 60 ml/min 09/07/20 07:29 BUN/Creatinine Ratio 22 % 09/07/20 07:29 Glucose 101 mg/dL (65-100) H 09/07/20 07:29 Uric Acid 4.9 mg/dL (3.5-7.6) 09/05/20 07:04 Calcium 9.0 mg/dL (8.4-10.2) D 09/07/20 07:29 Magnesium 5.90 mg/dL (1.7-2.3) H 09/06/20 00:12 Total Bilirubin 0.40 mg/dL (0.1-1.2) 09/07/20 07:29 AST 36 units/L (5-40) 09/07/20 07:29 ALT 56 units/L (7-56) 09/07/20 07:29 Alkaline Phosphatase 114 units/L (35-129) 09/07/20 07:29 Lactate Dehydrogenase 214 units/L (91-180) H 09/05/20 07:04 Total Protein 6.7 g/dL (6.3-8.2) 09/07/20 07:29 Albumin 3.4 g/dL (3.9-5) L 09/07/20 07:29 Albumin/Globulin Ratio 1.0 % 09/07/20 07:29 Arterial Blood Glucose 110 mg/dL (65-95) H 09/01/20 16:45 Arterial Blood Ionized Calcium 5.5 mg/dL (4.6-5.3) H 09/01/20 16:45 Urine Color Straw (Yellow) 09/05/20 02:57 Urine Turbidity Clear (Clear) 09/05/20 02:57 Urine pH 7.0 (5.0-7.0) 09/05/20 02:57 Ur Specific [place] 1.006 (1.003-1.030) 09/05/20 02:57 Urine Protein <15 mg/dl mg/dL (Negative) 09/05/20 02:57 Urine Glucose (UA) Negative mg/dL (Negative) 09/05/20 02:57 Urine Ketones Negative mg/dL (Negative) 09/05/20 02:57 Urine Blood Negative (Negative) 09/05/20 02:57 Urine Nitrite Negative (Negative) 09/05/20 02:57 Ur Reducing Substances Not Reportable 08/31/20 19:30 Urine Bilirubin Negative (Negative) 09/05/20 02:57 Urine Ictotest Not Reportable 08/31/20 19:30 Urine Urobilinogen < 2.0 mg/dL (<2.0) 09/05/20 02:57 Ur Leukocyte Esterase Negative (Negative) 09/05/20 02:57 Urine WBC (Auto) 1.0 /HPF (0.0-6.0) 09/05/20 02:57 Urine RBC (Auto) 1.0 /HPF (0.0-6.0) 09/05/20 02:57 U Epithel Cells (Auto) < 1.0 /HPF (0-13.0) 08/31/20 19:30 Urine Mucus Few /HPF 08/31/20 19:30 Urine Yeast (Budding) Few /HPF 08/31/20 19:30 Urine Opiates Screen Negative 08/31/20 19:30 Urine Methadone Screen Negative 08/31/20 19:30 Ur Barbiturates Screen Negative 08/31/20 19:30 Ur Phencyclidine Scrn Negative 08/31/20 19:30 Ur Amphetamines Screen Negative 08/31/20 19:30 U Benzodiazepines Scrn Negative 08/31/20 19:30 Urine Cocaine Screen Negative 08/31/20 19:30 U Marijuana (THC) Screen Negative 08/31/20 19:30 Drugs of Abuse Note Disclamer 08/31/20 19:30 Syphilis IgG Antibody Nonreactive (NonReactive) 08/31/20 18:30 Coronavirus (PCR) Negative (Negative) 09/01/20 08:55 Blood Type A POSITIVE 08/31/20 18:30 Antibody Screen Negative 08/31/20 18:30 Crossmatch See Detail 08/31/20 18:30 Active Medications - Current Medications Current Medications: Generic Name Dose Route Start Last Admin Trade Name Freq PRN Reason Stop Dose Admin Amlodipine Besylate 10 mg 09/08/20 10:00 09/08/20 09:47 Amlodipine 10 Mg Tab PO 10 mg DAILY EMMANUEL Administration Benzocaine/Menthol 1 spray 09/02/20 17:41 09/02/20 18:16 Benzocaine/Menthol 20/0.5% [place] 56 Gm TP 1 spray TID PRN Administration Pain, Mild (1-3) Ferrous Sulfate 325 mg 09/02/20 14:00 09/08/20 20:15 Ferrous Sulfate 325 Mg Tab PO 325 mg TID EMMANUEL Administration Hydralazine HCl 50 mg 09/08/20 10:00 09/09/20 07:45 Hydralazine 25 Mg Tab PO 50 mg Q8HR EMMANUEL Administration Lactated Ringer's 1,000 mls @ 125 mls/hr 08/31/20 18:00 09/05/20 18:58 Lactated Ringers IV 125 mls/hr DIRECT EMMANUEL Administration Magnesium Sulfate 40 gm in 1,000 mls @ 50 mls/hr 09/05/20 03:00 09/05/20 23:43 Magnesium Sulfate 40gm/1000ml IV 2 gm/hr DIRECT EMMANUEL 50 mls/hr Administration 2 GM/HR Ibuprofen 600 mg 09/01/20 17:00 09/08/20 12:33 Ibuprofen 600 Mg Tab PO 600 mg Q6H EMMANUEL Administration Labetalol HCl 400 mg 09/07/20 06:36 09/08/20 22:08 Labetalol 200 Mg Tab PO 400 mg BID EMMANUEL Administration Multi-Ingredient Ointment 1 applic 09/01/20 16:43 Lanolin/Zinc/Dimethicone (Lansinoh) 7 Gm TP PRN PRN Sore [place] Multivitamins/Iron/Calcium 1 each 09/02/20 13:00 09/07/20 09:47 [id number] Fumarate-Folic Acid Vit Tab PO 1 each DAILY EMMANUEL Administration Promethazine HCl 25 mg 09/01/20 16:43 Promethazine 25 Mg Tab PO Q6H PRN Nausea And Vomiting Witch Savana/Glycerin 1 each 09/01/20 16:43 09/02/20 17:40 Witch [place]/ Glycerin Pad TP 1 each PRN PRN Administration Hemorrhoid/cleansing/soothing
[2020-09-09] MEDS: PRENATAL VIT27-FE FUMARATE-FOLIC ACID VIT TAB PO SCH (10:08)
[2020-09-09] MEDS: FERROUS SULFATE 325 MG TAB PO SCH ×2 (10:08→10:09)
[2020-09-09] MEDS: amLODIPine 10 MG TAB PO SCH (11:33)
--- NOTE | 2020-09-09 14:55 | Discharge Summary ---
Providers - Providers Date of Admission: 08/31/20 17:46 Date of discharge: 09/09/20 Attending physician: BRE ROGERS 09/07/20 18:04 Consult to Physician [CONS] Routine Comment: Consulting Provider: EDNA DAVIS Physician Instructions: Reason For Exam: Refractory hypertension; Primary care physician: BRE ROGERS Hospitalization Reason for admission: induction of labor (severe preeclampsia by blood pressure) Delivery: Procedure details: s/p 09/01/20. Complicated by preeclampsia with severe features by blood pressure. Laceration: 2nd degree complications: perineal laceration (2nd degree), transfusion (s/p 2 units for delayed hemorrhage, total EBL 800 cc) Discharge diagnosis: IUP at term delivered baby: male Hospital course: 19 yo G1 at 39w0d c/b hx low lying placenta, GBS negative, elevated blood pressures admitted for IOL for early labor and preeclampsia with severe features by blood pressures. s/p on 09/01 at 39w1d. Patient with delayed hemorrage of 400cc, total EBL including deliver 800cc. s/p cytotec 1000mg, hemabate x 1. Starting Hgb 13.5 -> POD0 9.4 -> POD1 7.6. Transfused 2 units pRBCs on 09/02/20 with appropriate rise. Hospitalist admitted for severe range BPs, unable to be controlled. BP medication titrated until normotensive on 09/09/20 and discharge in good condition with close follow up in 1 week for BP check. Outpatient BP regimen amlodipine 10mg qday, apresoline 50mg q8hr, labetolol 400mg BID Condition at discharge: Fair Disposition: DC-01 TO HOME OR SELFCARE - Discharge Diagnoses (1) Preeclampsia Status: Acute (2) (normal spontaneous vaginal delivery) Status: Acute Plan - Discharge Medications Prescriptions: amLODIPine 10 mg PO DAILY #30 tablet hydrALAZINE [Apresoline TAB] 50 mg PO Q8HR #90 tablet labetaloL [Labetalol 200mg TAB] 400 mg PO BID #120 tablet - Provider Discharge Summary Activity: routine Diet: routine Instructions: routine Additional instructions: [] Smoking cessation referral if applicable(refer to patient education folder for contact #) [] Refer to [facility] Booklet Call your doctor immediately for: * Fever > 100.5 * Heavy vaginal bleeding ( >1 pad per hour) * Severe persistent headache * Shortness of breath * Reddened, hot, painful area to leg or breast * Drainage or odor from incision. * Keep incision clean and dry at all times and follow doctor's instructions regarding bathing/showering - Follow up plan Follow up: BRE ROGERS MD [Primary Care Provider] - 7 Days Forms: [facility] Discharge Summary
[2020-09-09 16:18] VITALS: BP 111/73
== END 2020-09-09 15:50 | disposition home or self-care (01) | DRG 774 ==
LOC: TRG 16:11 → APU 16:16 → LD 17:46 → TRG 17:46 → LD 17:50 → OB 09-02 11:23 → LD 09-05 03:30 → OB 09-06 04:31
PROVIDERS: ADMIT Obstetrics & Gynecology; ATTEND Obstetrics & Gynecology
PROC: 3E0R3BZ Introduction of Anesthetic Agent into Spinal Canal, Percutaneous Approach (ICD-10-PCS; 2020-08-31)
PROC: 00HU33Z Insertion of Infusion Device into Spinal Canal, Percutaneous Approach (ICD-10-PCS; 2020-08-31)
PROC: 10E0XZZ Delivery of Products of Conception, External Approach (ICD-10-PCS; principal; 2020-09-01)
PROC: 0KQM0ZZ Repair Perineum Muscle, Open Approach (ICD-10-PCS; 2020-09-01)
PROC: 10907ZC Drainage of Amniotic Fluid, Therapeutic from Products of Conception, Via Natural or Artificial Opening (ICD-10-PCS; 2020-09-01)
PROC: 3E033VJ Introduction of Other Hormone into Peripheral Vein, Percutaneous Approach (ICD-10-PCS; 2020-09-01)
PROC: 30233N1 Transfusion of Nonautologous Red Blood Cells into Peripheral Vein, Percutaneous Approach (ICD-10-PCS; 2020-09-02)
DX: O14.94 Unspecified pre-eclampsia, complicating childbirth (principal); O72.1 Other immediate postpartum hemorrhage; Z3A.39 39 weeks gestation of pregnancy; Z37.0 Single live birth; Z20.822 Contact with and (suspected) exposure to COVID-19; O70.1 Second degree perineal laceration during delivery
CPT/HCPCS: 36415; 76770; 76816; 80053; 80307; 81001; 82565; 82570; 82805; 83615; 83735; 84156; 84450; 84460; 84550; 85014; 85018; 85025; 85027; 86592; 86850; 86900; 86901; 86920; 87086; G0378; J0290; J0360; J0595; J2590; J3475; J7040; J7120; P9016; U0003